=== PATIENT | female | born 1965 | race Caucasian/White ===

== ENCOUNTER → 2017-08-15 | Outpatient (CLI) | payer MEDICAID, OTHER, SELFPAY ==
[~2017-08-15] MED LIST: ALBU17IN INH; ANOR1AER IN; COUM2.5T17 PO; IBUP-1022 PO; LORA10TA2 PO; PERC5TAB12 PO; VITA1CAP40 PO
--- NOTE | 2017-08-15 11:02 | REP ---
PA and lateral chest: Comparison is 03/03/2013. The lung lombardi are clear. The cardiac size is normal The ankit, mediastinum, and bony thorax are unremarkable except for thoracic scoliosis convex right, unchanged. Impression: Negative PA and lateral chest. Except for thoracic scoliosis convex right, unchanged. Signed by Ricky Hatch MD 08/15/2017 10:54 A
--- NOTE | 2017-08-15 11:40 | REP ---
BILATERAL BASELINE SCREENING DIGITAL MAMMOGRAM: There are no comparisons. The breast parenchyma is moderately dense. There is no dominant mass, microcalcific cluster or architectural distortion that would indicate malignancy. Impression: Negative baseline bilateral screening digital mammogram. BI-RADS category 1. No evidence of malignancy. The patient should have a repeat mammogram in 1 year. This mammogram was interpreted with the aid of an FDA-approved computer-aided detection system. A. Negative x-ray reports should not delay biopsy if a dominant or clinically suspicious mass is present. B. Four to eight percent of cancers are not identified by x-ray. C. Adenosis and dense breasts may obscure an underlying neoplasm. The patient letter being requested is M1. Signed by Ricky Hatch MD 08/15/2017 11:56 A
[2017-08-15 13:06] LABS: BASO % 0.6 % (0.0-1.0); EOS # 0.1 10^3/uL (0.0-0.50); EOS % 2.5 % (0.0-3.0); IMMATURE GRANULOCYTE % 0.2 % (0-0); LYMPH # 1.8 10^3/uL (1.5-4.5); LYMPH % 33.9 % (24.0-44.0); MEAN CORPUSCULAR HEMOGLOBIN 34.3 pg (27.0-33.0); MEAN CORPUSCULAR HGB CONC 34.6 g/dl (32.0-36.5); MEAN CORPUSCULAR VOLUME 99.2 fl (80.0-96.0); MONO # 0.4 10^3/uL (0.0-0.8); MONO % 6.7 % (0.0-5.0); NEUTROPHILS # 2.9 10^3/uL (1.8-7.7); NEUTROPHILS % 56.1 % (36.0-66.0); WHITE BLOOD COUNT 5.2 10^3/uL (4.0-10.0)
[2017-08-15 15:57] LABS: ALBUMIN 3.5 GM/DL (3.2-5.2); ALBUMIN/GLOBULIN RATIO 1.03 (1.00-1.93); ALKALINE PHOSPHATASE 69 U/L (45-117); ALT/SGPT 17 U/L (12-78); ANION GAP 5 MEQ/L (8-16); AST/SGOT 10 U/L (15-37); BILIRUBIN,TOTAL 0.5 MG/DL (0.2-1.0); BLOOD UREA NITROGEN 14 MG/DL (7-18); CALCIUM LEVEL 8.9 MG/DL (8.5-10.1); CARBON DIOXIDE LEVEL 27 MEQ/L (21-32); CHLORIDE LEVEL 108 MEQ/L (98-107); CHOLESTEROL LEVEL 211 MG/DL (<200); CREATININE FOR GFR 0.83 MG/DL (0.55-1.02); GLOMERULAR FILTRATION RATE > 60.0 (>51); GLUCOSE, FASTING 95 MG/DL (70-105); POTASSIUM SERUM 4.3 MEQ/L (3.5-5.1); SODIUM LEVEL 140 MEQ/L (136-145); TOTAL PROTEIN 6.9 GM/DL (6.4-8.2); TRIGLYCERIDES LEVEL 155 MG/DL (<150)
== END ==
LOC: M RAD 10:11
PROVIDERS: ATTEND Physician Assistant Medical
DX: Z12.31 Encounter for screening mammogram for malignant neoplasm of breast (principal)
CPT/HCPCS: 36415; 71020; 80053; 80061; 82306; 85027; G0202

== ENCOUNTER → 2017-08-24 | Outpatient (CLI) | payer MEDICAID, OTHER ==
[2017-08-24 11:07] LABS: MEAN CORPUSCULAR HEMOGLOBIN 34.6 pg (27.0-33.0); MEAN CORPUSCULAR HGB CONC 35.1 g/dl (32.0-36.5); MEAN CORPUSCULAR VOLUME 98.5 fl (80.0-96.0); RED CELL DISTRIBUTION WIDTH 13.5 % (11.5-14.5); WHITE BLOOD COUNT 5.7 10^3/uL (4.0-10.0)
[2017-08-24 11:18] LABS: INR 0.85
[2017-08-24 11:32] LABS: ALBUMIN 3.8 GM/DL (3.2-5.2); ALBUMIN/GLOBULIN RATIO 1.03 (1.00-1.93); ALKALINE PHOSPHATASE 76 U/L (45-117); ALT/SGPT 19 U/L (12-78); ANION GAP 5 MEQ/L (8-16); AST/SGOT 15 U/L (15-37); BILIRUBIN,TOTAL 0.5 MG/DL (0.2-1.0); BLOOD UREA NITROGEN 17 MG/DL (7-18); CALCIUM LEVEL 9.1 MG/DL (8.5-10.1); CARBON DIOXIDE LEVEL 26 MEQ/L (21-32); CHLORIDE LEVEL 107 MEQ/L (98-107); CREATININE FOR GFR 0.97 MG/DL (0.55-1.02); GLOMERULAR FILTRATION RATE > 60.0 (>51); GLUCOSE, FASTING 94 MG/DL (70-105); POTASSIUM SERUM 4.5 MEQ/L (3.5-5.1); SODIUM LEVEL 138 MEQ/L (136-145); TOTAL PROTEIN 7.5 GM/DL (6.4-8.2)
--- NOTE | 2017-08-24 11:44 | ECGEPIP ---
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
== END ==
LOC: M ADMPAT 09:22
PROVIDERS: ATTEND Orthopaedic Surgery
DX: Z01.818 Encounter for other preprocedural examination (principal); M17.11 Unilateral primary osteoarthritis, right knee

== ENCOUNTER 2017-09-05 10:29 | Inpatient (IN) | payer MEDICAID, OTHER ==
[2017-08-24 09:56] VITALS: BP 128/74
--- NOTE | 2017-08-31 15:25 | HPE ---
DATE OF ADMISSION: 09/05/2017 HISTORY OF PRESENT ILLNESS: Mandy Bell is a pleasant, white female with continuing symptomatic right knee osteoarthritis. She has consented for a right total knee arthroplasty per Dr. Octaviano Willingham. Medical optimization was performed on 08/13/2017 with CHICHI Johnson. S-rays are consistent with advanced osteoarthritis. ALLERGIES: PENICILLIN. MEDICATIONS: List includes: - Coumadin 5 mg which she will take the night before surgery - tumeric - Claritin 10 mg one by mouth every day as needed for allergy symptoms - Anoro Ellipta 62.5/25 mcg - vitamin D 50,000 units one tablet by mouth once weekly with dinner - ProAir HFA 108 (90) two puffs four times a day as needed - ibuprofen 600 mg one tablet by mouth three times a day - Claritin RediTabs 10 mg - warfarin sodium take one by mouth every evening as directed MEDICAL PROBLEM LIST: 1. Right knee varus [id number] osteoarthritis. 1. Seasonal allergies. PAST SURGICAL HISTORY: None. FAMILY HISTORY: Cancer, diabetes. SOCIAL HISTORY: Current smoker everyday, occasional alcohol, two drinks maybe once a week. No illicit drugs. REVIEW OF SYSTEMS: Denies chest pain, shortness breath, dyspnea on exertion, fever, chills, malaise, upper respiratory or urinary tract symptoms. PHYSICAL EXAMINATION: Blood pressure 118/76, pulse 62, respiration 20, height 60, weight 164, temperature 96.8. This is a pleasant, overweight, white female in no acute distress, alert and oriented times three. Mood and affect are appropriate. Normocephalic. NECK: Supple. Negative jugular venous distention (JVD) or bruits. LUNGS: Clear to auscultation. CHEST: Regular rate and rhythm. ABDOMEN: Soft, nontender, sounds times four. Lower extremity skin temperature, color, sensory and motor within normal limits. She has positive tenderness about her right knee medial joint line with crepitance through flexion and extension. LABORATORY DATA: Reviewed from 08/24/2017 which showed blood urine 2+. Urine auto bacteria 1+. PT time 11.6. Anion gap 5. Urine culture specimen appeared contaminated. Nasal sinus culture normal elvira present. Chest x-ray negative except for thoracic scoliosis convex right by [facility], read by Dr. Ricky Hatch on 08/15/2017. EKG sinus bradycardia read by Dr. Mildred Mendoza. IMPRESSION: 1. Symptomatic right knee osteoarthritis. 2. Patient consented for a right total knee arthroplasty per Dr. Octaviano Willingham. 3. Medical optimization on 08/13/2017 per CHICHI Johnson. We are still awaiting her optimization note. 4. 600 mg IV clindamycin in operating room (OR) per penicillin allergy. 5. Sequential compression device (SCD) and thromboembolic-deterrent stockings (TEDS) in OR. MTDD
[~2017-09-05] VITALS: Ht 162.6 cm; Wt 77.6 kg
[~2017-09-05 10:29] MED LIST changes: -COUM2.5T17 PO; -PERC5TAB12 PO
[2017-09-05] MEDS ORDERED: LR 1,000 ML IV ONE (11:00)
[2017-09-05] MEDS ORDERED: ACETAMINOPHEN 500 MG TAB PO ONE (11:00)
[2017-09-05] MEDS ORDERED: MIDAZOLAM INJ 2 MG/2 ML VIAL (J2250) As Ordered ONE ×2 (12:00→12:23)
[2017-09-05] MEDS ORDERED: fentaNYL 100 MCG/2 ML INJECTION (J3010) As Ordered ONE ×2 (12:00→12:24)
[2017-09-05] MEDS ORDERED: EPINEPHrine INJ 1 MG/ML 1ML AMP As Ordered ONE (12:30)
[2017-09-05] MEDS ORDERED: TRANEXAMIC ACID 100 MG/ML 10ML VIAL As Ordered ONE (12:30)
[2017-09-05] MEDS ORDERED: BUPIVACAINE LIPOSOME/PF 1.3% 20 ML VIAL (13.3MG/ML)(EXPAREL) As Ordered ONE (12:31)
[2017-09-05] MEDS ORDERED: CLINDAMYCIN INJ 900MG/6ML VIAL As Ordered ONE (12:33)
[2017-09-05] MEDS ORDERED: MIDAZOLAM INJ 2 MG/2 ML VIAL (J2250) IV ONE (13:15)
[2017-09-05] MEDS ORDERED: fentaNYL 100 MCG/2 ML INJECTION (J3010) IV ONE (13:15)
[2017-09-05] MEDS ORDERED: ePHEDrine SULFATE 25 MG/5 ML(5MG/ML) SYRINGE As Ordered ONE ×2 (14:12→15:06)
[2017-09-05] MEDS ORDERED: PROPOFOL 200 MG/20 ML VIAL As Ordered ONE (14:12)
[2017-09-05] MEDS ORDERED: ONDANSETRON 4MG/2ML VIAL (J2405) As Ordered ONE (14:12)
[2017-09-05] MEDS ORDERED: LIDOCAINE 2% INJ 100 MG/5 ML SDV (FOR ANES.) As Ordered ONE (14:12)
[2017-09-05] MEDS ORDERED: SUCCINYLCHOLINE 100 MG/5 ML SYRINGE (J0330) As Ordered ONE (14:12)
[2017-09-05] MEDS ORDERED: dexameTHASONE 4 MG/ML 1ML VIAL (J1100) As Ordered ONE (14:12)
[2017-09-05] MEDS ORDERED: HYDROmorphone HCL 2 MG/ML 1ML VIAL (J1170) As Ordered ONE (14:27)
[2017-09-05] MEDS ORDERED: MORPHINE 1MG/ML IN 0.9% NACL 100ML IV BAG As Ordered ONE (15:20)
[2017-09-05] MEDS ORDERED: EPIDURAL/PCA KEYS XX PRN (16:15)
[2017-09-05] MEDS ORDERED: MEPERIDINE INJ 25 MG/ML VIAL (J2175) IV PRN (16:15)
[2017-09-05] MEDS ORDERED: LR 1,000 ML IV SCH (16:15)
[2017-09-05] MEDS ORDERED: diphenhydrAMINE INJ 50MG/ML VIAL (J1200) IV PRN (16:15)
[2017-09-05] MEDS ORDERED: ACETAMINOPHEN TAB 650MG DOSE (2X325MG) PO PRN (16:15)
[2017-09-05] MEDS ORDERED: fentaNYL 100 MCG/2 ML INJECTION (J3010) IV PRN (16:15)
[2017-09-05] MEDS ORDERED: FLEET ENEMA PR PRN (16:15)
[2017-09-05] MEDS ORDERED: ONDANSETRON 4MG/2ML VIAL (J2405) IV PRN ×2 (16:15)
[2017-09-05] MEDS ORDERED: METOCLOPRAMIDE INJ 10MG/2ML VIAL (J2765) IV PRN (16:15)
[2017-09-05] MEDS ORDERED: NALBUPHINE HCL 10 MG/ML AMP (J2300) IV PRN (16:15)
[2017-09-05] MEDS ORDERED: NALOXONE INJ 0.4 MG/1 ML VIAL (J2310) IV PRN (16:15)
[2017-09-05] MEDS: LR 1,000 ML IV SCH (16:15)
[2017-09-05] MEDS ORDERED: MORPHINE 1MG/ML IN 0.9% NACL 100ML IV BAG IV PRN (16:15)
--- NOTE | 2017-09-05 16:51 | RO ---
DATE OF PROCEDURE: 09/05/2017 PREOPERATIVE DIAGNOSIS: Right knee degenerative arthritis. POSTOPERATIVE DIAGNOSIS: Right knee degenerative arthritis. PROCEDURE: Right total knee arthroplasty using a size 2-1/2 femoral component cruciate retaining with a size 2-1/2 tibial tray with a 10.5 mm rotating polyethylene insert and a 32 mm polyethylene button. All components were cemented. Prosthesis made by [employer]. It was a PFC knee. SURGEON: Linette Scruggs MD FORMATION TESTING OPERATOR: Ms. Mar Coulter ANESTHESIA: General endotracheal anesthetic with right femoral nerve block. COMPLICATIONS: Were none. SPECIMEN: Joint surface. ESTIMATED BLOOD LOSS: Less than 20 mL. DESCRIPTION OF PROCEDURE: Antibiotics were given intravenously preoperatively and a successful right femoral nerve block and then general endotracheal tube anesthetic was established. Tourniquet was placed right upper thigh and not inflated. Right lower extremity was prepped and draped in the usual sterile fashion, and then after appropriate time-out, the leg was elevated and then the tourniquet inflated. A longitudinal incision was then made for a medial parapatellar approach to the knee. Bovie cautery used to coagulate the crossing vessels. Medial parapatellar arthrotomy was then performed. Subperiosteal dissection around the proximal medial and lateral tibia plateaus was then performed. The patella was everted. The knee flexed. A drill was placed down the center of the femoral canal, followed by the distal femoral cutting jigs set at 5 degree valgus cut at 10 mm resection level for a right knee. The block was pinned in position. Distal femoral cut performed. AP sizing jig measured for right on the money for a 2.5 size femoral component. The 3 degree external rotation block for a right knee was pinned, followed by the 4-in-1 block and the anterior, posterior and chamfer cuts performed taking great care to protect the surrounding soft tissues. We then exposed the proximal tibia, used the extramedullary alignment jig to estimate being parallel to the mechanical axis of the tibia. Once we had adjusted appropriately, we referenced off the medial tibial condyle at 4 mm resection leve block It was pinned in positioned. Secondary luana was used to ensure that we appeared to be parallel to the mechanical axis. We did have to adjust it by pulling a pin en route and using the extramedullary luana to adjust our alignment and re-pinning the tibia jig. The proximal tibial osteotomy was then performed. Then, the lamina morning news producer was placed medially and we performed a completion lateral meniscectomy with debridement of the posterior lateral osteophytes. Then, we placed the lamina morning news producer laterally and performed a completion medial meniscectomy and debridement of the posterior medial osteophytes. The spacer block, 10 mm, fit nicely with good symmetry in both flexion and in extension. Good stability varus, valgus stress testing noted. We then exposed the proximal tibia, sized for a 2.5 tray, which pinned, reamed and broached in position, followed by the trial polyethylene, then trial femoral component, which fit nicely. Brought the knee into the extension. Everted the patella. Performed a patellar osteotomy. Sized for a 32 mm button. Lug holes drilled. The trial prosthesis was applied and the patellofemoral tracking was anatomic. We then drilled the lug holes for the femur. Removed all trial components. Exparel was placed into the posterior and in the medial and lateral aspects of the femur, as well as the medial and lateral aspects of the periosteum of the tibia, and then Ms. Mar Coulter mixed the cement on the back table as I prepared the bony surfaces for cementing with a copious amount of pulsatile lavage irrigant solution. She was also critical to the success of the procedure by helping manipulate the knee, apply appropriate soft tissue retraction, help to close the wound, amongst many other tasks. Once all the bony surfaces were thoroughly dried, we cemented the tibial tray, removed excess cement, placed the polyethylene. Cemented the femoral component and removed excess cement. Brought the knee into extension. Cemented the patellar button and clamped it and removed excess cement and held the position until the cement hardened. We copiously pulsatile lavage irrigated out the knee joint as we were awaiting for the cement to harden, then applied tranexamic acid. Barron arthrotomy was closed with two #1 interrupted PDS sutures. The medial parapatellar area was closed with a #1 PDS suture, then a running double armed Stratafix used to close the capsule, then the tourniquet was released. We copiously irrigated the wound again, and then closed the deep subdermal tissues with interrupted #2-0 PDS suture. The skin was closed with vernell, covered by Adaptic, dry sterile bulky dressing. She was then awakened from general endotracheal tube anesthesia after having tolerated the procedure well, transferred to the recovery room in stable condition. There were no intraoperative complications.
[2017-09-05] MEDS ORDERED: WARFARIN SOD 5 MG TAB PO ONE (17:00)
[2017-09-05 18:00] VITALS: BP 127/58
[2017-09-05 18:30] VITALS: BP 125/60
[2017-09-05] MEDS ORDERED: ALBUTEROL SULFATE 2.5 MG/0.5 ML INH NEB SOLN NEB PRN (18:45)
[2017-09-05] MEDS ORDERED: CETIRIZINE (ZyrTEC) 10 MG TAB PO PRN (18:45)
[2017-09-05 19:30] VITALS: BP 110/57
--- NOTE | 2017-09-05 19:34 | IPN ---
DATE: 09/05/2017 PRIMARY CARE PROVIDER: Romelia Amezcua REASON FOR CONSULTATION: Medical management. REFERRING PHYSICIAN: Dr. Willingham. HISTORY OF PRESENT ILLNESS: The patient is a 52-year-old female with a past medical history significant for seasonal allergies presented to [facility] on 09/05/2017 for right knee replacement. Patient tolerated the procedure well. Denies any acute complaints during our encounter. Patient's primary care providers notes were reviewed. Patient was given inhaler 08/29/2017 for suspicion for chronic obstructive pulmonary disease, but patient never had a pulmonary function test before. PAST MEDICAL HISTORY: Seasonal allergies. PAST SURGICAL HISTORY: Right knee placement done 09/05/2017. SOCIAL HISTORY: Patient smoked one pack daily for the past 28 years. Patient drinks rum and coke approximately two times weekly. Denies recreational drug use. ALLERGIES: None. Patient did have significant family history of penicillin allergy. REVIEW OF SYSTEMS: GENERAL: No fever or chills. HEENT: No vision change, no auditory change. CARDIOVASCULAR: No chest pain, or palpitations. RESPIRATORY: No cough. No sputum production. GI: No nausea, no vomiting. No abdominal pain, no diarrhea. MUSCULOSKELETAL : Right knee osteoarthritis status post right total knee replacement 09/05/2017. NEURO: Denied any numbness or tingling. OBJECTIVE: Vital signs temperature 96.4, pulse is 54, respirations 18, blood pressure is 130/62, pulse ox is 94% with 3 liters nasal cannula. GENERAL: No fatigue. No sign of acute distress. Awake, alert, and oriented times three. HEENT: Normocephalic, atraumatic. Extraocular motor grossly intact. CARDIOVASCULAR: Distant heart sounds, positive S1, S2. Irregular rate. LUNGS: Mild crackles in the lung base. No wheezes. ABDOMEN: Soft, non-tender. Non-distended. Bowel sounds present. EXTREMITIES: Right knee is wrapped with a bandage. No lower extremity edema appreciated. LABORATORY DATA: 08/24/2017 showed WBC of 5.7, hemoglobin 14.3, hematocrit is 40.7, platelet count is 247. Sodium 138, potassium 4.5, chloride 107, carbon dioxide 26, BUN 17, creatinine 0.97, glomerular filtration rate (GFR) greater than 60. Fasting glucose is 94. ASSESSMENT AND PLAN: 1, Right knee total arthroplasty. Referred to the primary orthopedic team for postoperative care including diet, pain control, activity level and anticoagulation. 2. Seasonal allergy. Patient will have Zyrtec 10 mg every 30 as needed. 3. Question of tobacco abuse. Patient was told that primary care provider is suspecting she has chronic obstructive pulmonary disease, but she never had a pulmonary function test done. Patient was given Ellipta inhaler on 08/29/2017. At the time of examination patient does not have any significant wheezes, or cough or sputum production. Patient will have nebulizer as needed. 4. Deep vein thrombosis prophylaxis referred to primary surgical team.
[2017-09-05 20:30] VITALS: BP 124/68
[2017-09-05 21:30] VITALS: BP 118/52
[2017-09-05 21:53] VITALS: O2SAT 94
[2017-09-06 01:30] VITALS: BP 102/58
[2017-09-06] MEDS ORDERED: raNITIdine SYRUP 150 MG/10 ML UDC PO ONE (02:53)
[2017-09-06] MEDS: LR 1,000 ML IV SCH (04:45)
[2017-09-06 06:00] VITALS: BP 112/62
[2017-09-06 06:57] LABS: MEAN CORPUSCULAR HGB CONC 34.4 g/dl (32.0-36.5); MEAN CORPUSCULAR VOLUME 98.8 fl (80.0-96.0); PLATELET COUNT, AUTOMATED 180 10^3/uL (150-450); RED CELL DISTRIBUTION WIDTH 13.8 % (11.5-14.5); WHITE BLOOD COUNT 11.5 10^3/uL (4.0-10.0)
[2017-09-06] MEDS ORDERED: PERCOCET 5MG/325MG TAB PO PRN (07:00)
[2017-09-06 07:08] LABS: INR 1.09
[2017-09-06 07:15] LABS: ANION GAP 7 MEQ/L (8-16); BLOOD UREA NITROGEN 13 MG/DL (7-18); CALCIUM LEVEL 8.7 MG/DL (8.5-10.1); CARBON DIOXIDE LEVEL 27 MEQ/L (21-32); CHLORIDE LEVEL 104 MEQ/L (98-107); GLOMERULAR FILTRATION RATE > 60.0 (>51); GLUCOSE, FASTING 114 MG/DL (70-105); POTASSIUM SERUM 4.6 MEQ/L (3.5-5.1); SODIUM LEVEL 138 MEQ/L (136-145)
[2017-09-06] MEDS: MIRALAX *UNIT DOSE* 17GM PACKET PO SCH (08:38)
[2017-09-06] MEDS: MOM 30ML SUSPENSION UDC PO SCH (08:38)
[2017-09-06] MEDS: SENOKOT S TAB PO SCH ×2 (08:38→21:00)
[2017-09-06] MEDS: ONDANSETRON 4 MG TAB (S0181) PO PRN ×2 (08:38→23:32)
[2017-09-06] MEDS ORDERED: ONDANSETRON 4MG/2ML VIAL (J2405) IV PRN (09:00)
[2017-09-06] MEDS: PERCOCET 5MG/325MG TAB PO PRN ×3 (11:57→21:20)
--- NOTE | 2017-09-06 14:39 | REP ---
Right knee two views postoperative study: There is a total knee arthroplasty with the components tightly applied and in satisfactory positions alignment. Skin vernell are incidentally noted. Signed by Ricky Hatch MD 09/06/2017 02:30 P
[2017-09-06] MEDS ORDERED: ROPIvacaine 0.5% 30 ML INJECTION (J2795) ONE (14:56)
[2017-09-06] MEDS ORDERED: EPINEPHrine INJ 1 MG/ML 1ML AMP ONE (14:56)
--- NOTE | 2017-09-06 15:22 | IPNPDOC ---
Text Note Date of Service The patient was seen on 09/06/17. NOTE Subjective: Patient is a 52 year old female with a PMHx of seasonal allergies who presented to [facility] for an elective right knee arthroplasty. Patient was seen and examined at the bedside. Currently complaining of right knee pain. Objective: Vitals (See below) General: Lying in bed, no acute distress, comfortable, AAOx3 HEENT: NC, AT CVS: RRR, +S1S2 Lungs: Fair air entry b/l, -w/r/r Abdomen: Soft, ND, NT Extremities: - Edema, - Calf tenderness, Right knee in dressin g Assessment and plan: Right knee pain - likely 2/2 osteoarthritis - s/p total right knee arthroplasty (Day #1) - Failed medical management - Pain control and anticoagulation for DVT prophylaxis as per primary team Leukocytosis - likely 2/2 reactive process - s/p surgery - Will continue to monitor Normocytic anemia - will continue to monitor Seasonal allergies - c/w Cetirizine Tobacco abuse - c/w DuoNeb PRN DVT prophylaxis - As per primary primary team VSCandis, I+O VSCandis, I+O Laboratory Tests 09/06/17 06:43 Red Blood Count 3.44 L, Mean Corpuscular Volume 98.8 H, Mean Corpuscular Hemoglobin 34.0 H, Mean Corpuscular Hemoglobin Concent 34.4, Red Cell Distribution Width 13.8, Calcium Level 8.7 Vital Signs Date Time Temp Pulse Resp B/P (MAP) Pulse Ox O2 Delivery O2 Flow Rate FiO2 09/06/17 12:27 16 09/06/17 08:43 Room Air 09/06/17 06:00 98.4 72 112/62 (79) 96 3.0 I&O- Last 24 Hours up to 6 AM 09/07/17 06:00 Output Total 550 ml Balance -550 ml SACHA VEGA MD Sep 06, 2017 15:22
[2017-09-06] MEDS ORDERED: WARFARIN SOD 5 MG TAB PO ONE (17:00)
[2017-09-06 21:30] VITALS: O2SAT 93
[2017-09-06 22:00] VITALS: BP 133/60
[2017-09-06] MEDS ORDERED: FAMOTIDINE 20 MG TAB PO ONE (23:45)
[2017-09-07] MEDS: PERCOCET 5MG/325MG TAB PO PRN ×3 (02:39→15:10)
[2017-09-07 06:00] VITALS: BP 109/51
[2017-09-07 06:55] LABS: MEAN CORPUSCULAR HEMOGLOBIN 33.8 pg (27.0-33.0); MEAN CORPUSCULAR HGB CONC 33.7 g/dl (32.0-36.5); MEAN CORPUSCULAR VOLUME 100.3 fl (80.0-96.0); PLATELET COUNT, AUTOMATED 170 10^3/uL (150-450); WHITE BLOOD COUNT 9.8 10^3/uL (4.0-10.0)
[2017-09-07] MEDS ORDERED: MORPHINE 15 MG SA TAB PO ONE (07:00)
[2017-09-07 07:05] LABS: INR 1.34
[2017-09-07 07:17] LABS: CALCIUM LEVEL 8.7 MG/DL (8.5-10.1); CREATININE FOR GFR 1.06 MG/DL (0.55-1.02); GLOMERULAR FILTRATION RATE 57.7 (>51)
--- NOTE | 2017-09-07 08:28 | ECGEPIP ---
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
[2017-09-07 08:31] LABS: POTASSIUM SERUM 5.2 MEQ/L (3.5-5.1)
[2017-09-07] MEDS: SENOKOT S TAB PO SCH ×2 (09:00→21:00)
[2017-09-07] MEDS ORDERED: MORPHINE 15 MG SA TAB PO SCH (09:00)
[2017-09-07] MEDS ORDERED: PHYTONADIONE 1.25 MG 1/4 TAB PO ONE (09:00)
[2017-09-07] MEDS: MOM 30ML SUSPENSION UDC PO SCH (09:19)
[2017-09-07] MEDS: MIRALAX *UNIT DOSE* 17GM PACKET PO SCH (09:19)
--- NOTE | 2017-09-07 16:25 | IPNPDOC ---
Text Note Date of Service The patient was seen on 09/07/17. NOTE Subjective: Patient is a 52 year old female with a PMHx of seasonal allergies who presented to [facility] for an elective right knee arthroplasty. Patient was seen and examined at the bedside. Has had some progress with physical therapy, but still having a lot of pain. Orthopedic surgery has adjusted her pain control regimen. Objective: Vitals (See below) General: Lying in bed, no acute distress, comfortable, AAOx3 HEENT: NC, AT CVS: RRR, +S1S2 Lungs: Fair air entry b/l, -w/r/r Abdomen: Soft, ND, NT Extremities: - Edema, - Calf tenderness, Right knee in dressing Assessment and plan: Right knee pain - likely 2/2 osteoarthritis - s/p total right knee arthroplasty (Day #2) - Failed medical management - Pain control and anticoagulation for DVT prophylaxis as per primary team s/p Leukocytosis - likely 2/2 reactive process - s/p surgery - Will continue to monitor Normocytic anemia - will continue to monitor Seasonal allergies - c/w Cetirizine Tobacco abuse - c/w DuoNeb PRN DVT prophylaxis - As per primary primary team VS,Yfnbone, I+O VS, Yfnbone, I+O Laboratory Tests 09/07/17 06:35 Red Blood Count 3.34 L, Mean Corpuscular Volume 100.3 H, Mean Corpuscular Hemoglobin 33.8 H, Mean Corpuscular Hemoglobin Concent 33.7, Red Cell Distribution Width 14.0, Calcium Level 8.7 Vital Signs Date Time Temp Pulse Resp B/P (MAP) Pulse Ox O2 Delivery O2 Flow Rate FiO2 09/07/17 16:13 16 09/07/17 08:00 Room Air 09/07/17 07:02 2.0 09/07/17 06:00 99.7 78 109/51 (70) 96 SACHA VEGA MD Sep 07, 2017 16:25
[2017-09-07] MEDS ORDERED: WARFARIN SOD 7.5 MG TAB PO ONE (17:00)
[2017-09-07 18:55] VITALS: O2SAT 95
[2017-09-07] MEDS: MORPHINE 15 MG SA TAB PO SCH (21:24)
[2017-09-07 22:00] VITALS: BP 106/57
[2017-09-08] MEDS: PERCOCET 5MG/325MG TAB PO PRN ×2 (03:04→13:57)
[2017-09-08 06:00] VITALS: BP 105/58
[2017-09-08 07:26] LABS: MEAN CORPUSCULAR HEMOGLOBIN 34.5 pg (27.0-33.0); MEAN CORPUSCULAR HGB CONC 34.6 g/dl (32.0-36.5); MEAN CORPUSCULAR VOLUME 99.7 fl (80.0-96.0); PLATELET COUNT, AUTOMATED 156 10^3/uL (150-450); RED CELL DISTRIBUTION WIDTH 13.9 % (11.5-14.5); WHITE BLOOD COUNT 7.6 10^3/uL (4.0-10.0)
[2017-09-08 07:42] LABS: INR 1.47
[2017-09-08 07:57] LABS: ANION GAP 5 MEQ/L (8-16); BLOOD UREA NITROGEN 15 MG/DL (7-18); CALCIUM LEVEL 8.7 MG/DL (8.5-10.1); CARBON DIOXIDE LEVEL 31 MEQ/L (21-32); CHLORIDE LEVEL 100 MEQ/L (98-107); CREATININE FOR GFR 0.94 MG/DL (0.55-1.02); GLOMERULAR FILTRATION RATE > 60.0 (>51); GLUCOSE, FASTING 98 MG/DL (70-105); POTASSIUM SERUM 4.2 MEQ/L (3.5-5.1); SODIUM LEVEL 136 MEQ/L (136-145)
[2017-09-08] MEDS: SENOKOT S TAB PO SCH (08:46)
[2017-09-08] MEDS: MOM 30ML SUSPENSION UDC PO SCH (08:46)
[2017-09-08] MEDS: MIRALAX *UNIT DOSE* 17GM PACKET PO SCH (08:46)
[2017-09-08] MEDS: MORPHINE 15 MG SA TAB PO SCH (08:47)
[2017-09-08] MEDS ORDERED: COUM2.5T17 PO (09:12)
[2017-09-08] MEDS ORDERED: PERC5TAB12 PO (09:12)
--- NOTE | 2017-09-08 13:13 | IPNPDOC ---
Text Note Date of Service The patient was seen on 09/08/17. NOTE Subjective: Patient is a 52 year old female with a PMHx of seasonal allergies who presented to [facility] for an elective right knee arthroplasty. Patient was seen and examined at the bedside. Continues to work with physical therapy, has shown progression. Objective: Vitals (See below) General: Lying in bed, no acute distress, comfortable, AAOx3 HEENT: NC, AT CVS: RRR, +S1S2 Lungs: Fair air entry b/l, -w/r/r Abdomen: Soft, ND, NT Extremities: - Edema, - Calf tenderness, Right knee in dressing Assessment and plan: Right knee pain - likely 2/2 osteoarthritis - s/p total right knee arthroplasty (Day #3) - Failed medical management - Pain control and anticoagulation for DVT prophylaxis as per primary team s/p Leukocytosis - likely 2/2 reactive process - s/p surgery Normocytic anemia - Hg stable Seasonal allergies - c/w Cetirizine Tobacco abuse with possible chronic obstructive changes - c/w DuoNeb PRN DVT prophylaxis - As per primary primary team VS,Candis, I+O VS, Candis, I+O Laboratory Tests 09/08/17 07:05 Red Blood Count 3.33 L, Mean Corpuscular Volume 99.7 H, Mean Corpuscular Hemoglobin 34.5 H, Mean Corpuscular Hemoglobin Concent 34.6, Red Cell Distribution Width 13.9, Calcium Level 8.7 Vital Signs Date Time Temp Pulse Resp B/P (MAP) Pulse Ox O2 Delivery O2 Flow Rate FiO2 09/08/17 08:47 16 09/08/17 08:00 Room Air 09/08/17 06:00 97.9 64 105/58 (74) 94 09/07/17 07:02 2.0 SACHA VEGA MD Sep 08, 2017 13:13
--- NOTE | 2017-09-11 08:20 | DSES ---
DATE OF ADMISSION: 09/05/2017 DATE OF DISCHARGE: 09/08/2017 HISTORY OF PRESENT ILLNESS: This is a pleasant female who had continuing symptomatic right knee osteoarthritis. She consented for right total knee arthroplasty per Dr. Octaviano Willingham and was medically optimized by Romelia Amezcua. X-rays were consistent with advanced osteoarthritis. Operation performed was a right total knee arthroplasty. HOSPITAL COURSE: The patient uneventfully underwent right total knee arthroplasty under general endotracheal anesthetic with right femoral nerve block. She was returned to recovery comfortable, and our hospital team felt she could be discharged on 09/08/2017 with the following instructions: Weightbearing as tolerated right lower extremity with walker. Thromboembolism deterrent (TESFAYE) stockings and Coumadin times 30 days. Percocet as needed, pain. Diet is regular. Optifoam dressing change in 4 days' time. Followup in office for wound check. Staple removal in 12-14 days. The patient is encouraged to contact our office sooner with increased redness, drainage, bleeding, numbness, and tingling down her lower extremity, fever greater than 101, or further concerns. JULIETTE
== END 2017-09-08 14:14 | disposition home health service (06) | DRG 302 ==
LOC: M OR 10:29 → M MS5PR 18:00
PROVIDERS: ADMIT Orthopaedic Surgery; ATTEND Orthopaedic Surgery
PROC: 0SRC0J9 Replacement of Right Knee Joint with Synthetic Substitute, Cemented, Open Approach (ICD-10-PCS; principal; 2017-09-05 12:30)
DX: M17.11 Unilateral primary osteoarthritis, right knee (principal); D64.9 Anemia, unspecified; Z79.01 Long term (current) use of anticoagulants; Z79.899 Other long term (current) drug therapy; F17.200 Nicotine dependence, unspecified, uncomplicated; D72.829 Elevated white blood cell count, unspecified

== ENCOUNTER → 2017-09-21 | Outpatient (REF) | payer OTHER ==
[~2017-09-21] MED LIST changes: +COUM2.5T17 PO; +PERC5TAB12 PO
[2017-09-21 11:00] LABS: INR 1.67
== END ==
LOC: M SHH 10:43
PROVIDERS: ATTEND Nurse Practitioner Family
DX: Z51.81 Encounter for therapeutic drug level monitoring (principal); Z79.01 Long term (current) use of anticoagulants

== ENCOUNTER → 2017-09-25 | Outpatient (REF) | payer OTHER ==
[2017-09-25 14:11] LABS: INR 2.96
== END ==
LOC: M LAB REF 11:37 → M SHH 11:37
PROVIDERS: ATTEND Nurse Practitioner Family
DX: Z79.01 Long term (current) use of anticoagulants (principal)

== ENCOUNTER → 2017-09-28 | Outpatient (REF) | payer OTHER ==
[2017-09-28 14:33] LABS: INR 3.21
== END ==
LOC: M SHH 14:09
PROVIDERS: ATTEND Nurse Practitioner Family
DX: Z51.81 Encounter for therapeutic drug level monitoring (principal); Z79.01 Long term (current) use of anticoagulants

== ENCOUNTER → 2017-10-02 | Outpatient (REF) | payer OTHER ==
[2017-10-02 14:22] LABS: INR 1.34
== END ==
LOC: M LAB REF 13:53
PROVIDERS: ATTEND Nurse Practitioner Family
DX: Z79.01 Long term (current) use of anticoagulants (principal)

== ENCOUNTER → 2018-02-27 | Outpatient (REF) | payer OTHER ==
[2018-02-27 16:23] LABS: ALKALINE PHOSPHATASE 92 U/L (45-117); ALT/SGPT 17 U/L (12-78); ANION GAP 5 MEQ/L (8-16); AST/SGOT 14 U/L (7-37); BILIRUBIN,TOTAL 0.5 MG/DL (0.2-1.0); BLOOD UREA NITROGEN 17 MG/DL (7-18); CALCIUM LEVEL 9.5 MG/DL (8.5-10.1); CARBON DIOXIDE LEVEL 29 MEQ/L (21-32); CHLORIDE LEVEL 104 MEQ/L (98-107); CHOLESTEROL LEVEL 241 MG/DL (<200); CHOLESTEROL RISK RATIO 4.016 (<5); CREATININE FOR GFR 0.91 MG/DL (0.55-1.30); FREE T4 1.36 NG/DL (0.76-1.46); GLOMERULAR FILTRATION RATE > 60.0 (>51); GLUCOSE, FASTING 81 MG/DL (70-100); HDL CHOLESTEROL 60 MG/DL (>40); LDL CHOLESTEROL 158.4 MG/DL (<100); MAGNESIUM LEVEL 2.2 MG/DL (1.8-2.4); NON-HDL-C 181 MG/DL; POTASSIUM SERUM 4.5 MEQ/L (3.5-5.1); SODIUM LEVEL 138 MEQ/L (136-145); THYROID STIMULATING HORMONE 0.994 uIU/ML (0.358-3.740); TRIGLYCERIDES LEVEL 113 MG/DL (<150)
[2018-02-27 16:41] LABS: BASO % 0.4 % (0.0-1.0); EOS # 0.1 10^3/uL (0.0-0.50); EOS % 1.9 % (0.0-3.0); HEMATOCRIT 43.8 % (36.0-47.0); HEMOGLOBIN 15.3 g/dl (12.0-15.5); IMMATURE GRANULOCYTE % 0.2 % (0-3.0); MEAN CORPUSCULAR HEMOGLOBIN 33.5 pg (27.0-33.0); MEAN CORPUSCULAR HGB CONC 34.9 g/dl (32.0-36.5); MEAN CORPUSCULAR VOLUME 95.8 fl (80.0-96.0); MONO # 0.4 10^3/uL (0.0-0.8); MONO % 7.2 % (0.0-5.0); NEUTROPHILS # 3.1 10^3/uL (1.8-7.7); NEUTROPHILS % 54.3 % (36.0-66.0); PLATELET COUNT, AUTOMATED 224 10^3/uL (150-450); RED BLOOD COUNT 4.57 10^6/uL (4.00-5.40); RED CELL DISTRIBUTION WIDTH 13.9 % (11.5-14.5); WHITE BLOOD COUNT 5.7 10^3/uL (4.0-10.0)
[2018-02-27 17:45] LABS: APPEARANCE, URINE CLEAR (CLEAR); BACTERIA, URINE AUTO NEGATIVE (NEGATIVE); BILIRUBIN, URINE AUTO NEGATIVE (NEGATIVE); BLOOD, URINE BLOOD 2+ (NEGATIVE); COLOR, URINE YELLOW (YELLOW); GLUCOSE, URINE (UA) AUTO NEGATIVE (NEGATIVE); KETONE, URINE AUTO NEGATIVE (NEGATIVE); LEUKOCYTE ESTERASE, URINE AUTO NEGATIVE (NEGATIVE); MUCUS, URINE SMALL (NEGATIVE); NITRITE, URINE AUTO NEGATIVE (NEGATIVE); PROTEIN, URINE AUTO NEGATIVE (NEGATIVE); RBC, URINE AUTO 4 /HPF (0-3); SPECIFIC GRAVITY URINE AUTO 1.009 (1.002-1.035); SQUAMOUS EPITHELIAL CELL UR AU 2 /HPF (0-6); UROBILINOGEN, URINE AUTO 0.2 mg/dL (0.0-2.0); WBC, URINE AUTO 1 /HPF (0-3)
== END ==
LOC: M LAB REF 15:53
DX: R00.1 Bradycardia, unspecified (principal); Z13.220 Encounter for screening for lipoid disorders; K59.00 Constipation, unspecified; R82.71 Bacteriuria

== ENCOUNTER → 2018-03-20 | Outpatient (CLI) | payer OTHER | LOC: M EKG 11:40 | DX: R00.1 Bradycardia, unspecified (principal) | CPT/HCPCS: 93005 ==

== ENCOUNTER → 2018-04-03 | Outpatient (REF) | payer OTHER | LOC: M LAB REF 19:27 | DX: Z12.4 Encounter for screening for malignant neoplasm of cervix (principal) ==

== ENCOUNTER → 2018-04-03 | Outpatient (REF) | payer OTHER ==
[2018-04-03 17:42] LABS: APPEARANCE, URINE HAZY (CLEAR); BACTERIA, URINE AUTO NEGATIVE (NEGATIVE); BILIRUBIN, URINE AUTO NEGATIVE (NEGATIVE); BLOOD, URINE BLOOD 2+ (NEGATIVE); COLOR, URINE YELLOW (YELLOW); GLUCOSE, URINE (UA) AUTO NEGATIVE (NEGATIVE); KETONE, URINE AUTO NEGATIVE (NEGATIVE); LEUKOCYTE ESTERASE, URINE AUTO TRACE (NEGATIVE); NITRITE, URINE AUTO NEGATIVE (NEGATIVE); PROTEIN, URINE AUTO NEGATIVE (NEGATIVE); RBC, URINE AUTO 8 /HPF (0-3); SPECIFIC GRAVITY URINE AUTO 1.011 (1.002-1.035); SQUAMOUS EPITHELIAL CELL UR AU 5 /HPF (0-6); UROBILINOGEN, URINE AUTO 0.2 mg/dL (0.0-2.0); WBC, URINE AUTO 4 /HPF (0-3)
== END ==
LOC: M LAB REF 16:45
DX: R31.29 Other microscopic hematuria (principal)

== ENCOUNTER → 2018-04-17 | Outpatient (REF) | payer OTHER | LOC: M LAB REF 16:36 | DX: R31.29 Other microscopic hematuria (principal) ==

== ENCOUNTER → 2018-04-30 | Outpatient (CLI) | payer OTHER | LOC: M PLARAD 13:40 | DX: M51.26 Other intervertebral disc displacement, lumbar region (principal); M48.061 Spinal stenosis, lumbar region without neurogenic claudication | CPT/HCPCS: 72148 ==

== ENCOUNTER → 2018-05-01 | Outpatient (CLI) | payer OTHER ==
[~2018-05-01] MED LIST changes: -ALBU17IN INH; -ANOR1AER IN; +CONRAY-43 43% 50ML VIAL (Q9960) As Ordered; -COUM2.5T17 PO; -IBUP-1022 PO; +LIDOCAINE 1% MDV 20ML VIAL As Ordered; -LORA10TA2 PO; -PERC5TAB12 PO; +TRIAMCINOLONE ACETONIDE SUSP 40 MG/ML VIAL (J3301) As Ordered; -VITA1CAP40 PO
== END ==
LOC: M RADPRO 08:25
DX: M16.11 Unilateral primary osteoarthritis, right hip (principal)
CPT/HCPCS: 20610

== ENCOUNTER → 2018-05-03 | Outpatient (CLI) | payer OTHER ==
[2018-05-03 13:49] LABS: APPEARANCE, URINE MANUAL HAZY (CLEAR); COLOR, URINE MANUAL YELLOW (YELLOW)
[2018-05-03 13:50] LABS: BILIRUBIN, URINE MANUAL NEGATIVE (NEGATIVE); BLOOD URINE MANUAL POSITIVE (NEGATIVE); GLUCOSE, URINE (UA) MANUAL NEGATIVE (NEGATIVE); KETONE, URINE MANUAL NEGATIVE (NEGATIVE); LEUKOCYTE ESTERASE, URINE MAN TRACE (NEGATIVE); MICROSCOPIC INDICATED? MAN YES (NO); NITRITE, URINE MANUAL NEGATIVE (NEGATIVE); PROTEIN, URINE MANUAL NEGATIVE (NEGATIVE); SPECIFIC GRAVITY,URINE MANUAL 1.015 (1.002-1.035); UROBILINOGEN, URINE MANUAL NORMAL (NORMAL)
[2018-05-03 14:06] LABS: AMORPHOUS SEDIMENT, URINE SMALL AMOUNT (NEGATIVE); SQUAMOUS EPITHELIAL CELL URINE SMALL AMOUNT /hpf (SMALL AMT); WBC, URINE 0-1 /hpf (0-3)
[2018-05-03 14:08] LABS: BACTERIA, URINE NONE SEEN; HYALINE CAST, URINE NONE SEEN /lpf (0-1)
[2018-05-03 14:09] LABS: MICROSCOPIC EXAM PERFORMED
[2018-05-03 14:35] LABS: ANION GAP 9 MEQ/L (8-16); BLOOD UREA NITROGEN 27 MG/DL (7-18); CALCIUM LEVEL 9.7 MG/DL (8.5-10.1); CARBON DIOXIDE LEVEL 26 MEQ/L (21-32); CHLORIDE LEVEL 104 MEQ/L (98-107); CREATININE FOR GFR 1.02 MG/DL (0.55-1.30); GLOMERULAR FILTRATION RATE > 60.0 (>51); GLUCOSE, FASTING 94 MG/DL (70-100); POTASSIUM SERUM 4.6 MEQ/L (3.5-5.1); SODIUM LEVEL 139 MEQ/L (136-145)
== END ==
LOC: M SMT 11:57
DX: R31.29 Other microscopic hematuria (principal)
CPT/HCPCS: 80048

== ENCOUNTER → 2018-05-08 | Outpatient (CLI) | payer OTHER ==
[~2018-05-08] MED LIST changes: -CONRAY-43 43% 50ML VIAL (Q9960) As Ordered; +ISOVUE-370 76% 100ML VIAL (Q9967) As Ordered; -LIDOCAINE 1% MDV 20ML VIAL As Ordered; -TRIAMCINOLONE ACETONIDE SUSP 40 MG/ML VIAL (J3301) As Ordered
== END ==
LOC: M RAD 09:05
DX: R31.29 Other microscopic hematuria (principal)
CPT/HCPCS: Q9967

== ENCOUNTER → 2018-05-31 | Outpatient (CLI) | payer OTHER | LOC: M RAD 07:09 | DX: R10.11 Right upper quadrant pain (principal) | CPT/HCPCS: 76705 ==

== ENCOUNTER → 2018-11-19 | Outpatient (CLI) | payer OTHER ==
[~2018-11-19] MED LIST changes: +ALBU17IN INH; +ANOR1AER IN; +COUM2.5T17 PO; +IBUP-1022 PO; -ISOVUE-370 76% 100ML VIAL (Q9967) As Ordered; +LORA10TA3 PO; +PERC5TAB12 PO; +VENTAER INH; +VITA50005 PO
[2018-11-19 12:53] LABS: HEMATOCRIT 41.5 % (36.0-47.0); HEMOGLOBIN 14.5 g/dl (12.0-15.5); MEAN CORPUSCULAR HEMOGLOBIN 33.6 pg (27.0-33.0); MEAN CORPUSCULAR HGB CONC 34.9 g/dl (32.0-36.5); MEAN CORPUSCULAR VOLUME 96.3 fl (80.0-96.0); PLATELET COUNT, AUTOMATED 240 10^3/uL (150-450); RED BLOOD COUNT 4.31 10^6/uL (4.00-5.40); WHITE BLOOD COUNT 6.8 10^3/uL (4.0-10.0)
[2018-11-19 13:36] LABS: ALBUMIN 3.8 GM/DL (3.2-5.2); ALT/SGPT 15 U/L (12-78); BILIRUBIN,TOTAL 0.4 MG/DL (0.2-1.0); BLOOD UREA NITROGEN 18 MG/DL (7-18); CALCIUM LEVEL 9.1 MG/DL (8.5-10.1); CARBON DIOXIDE LEVEL 28 MEQ/L (21-32); CHLORIDE LEVEL 104 MEQ/L (98-107); CREATININE FOR GFR 0.95 MG/DL (0.55-1.30); ERYTHROCYTE SEDIMENTATION RATE 4 mm/hr (0-30); GLOMERULAR FILTRATION RATE > 60.0 (>51); GLUCOSE, FASTING 87 MG/DL (70-100); POTASSIUM SERUM 4.4 MEQ/L (3.5-5.1); SODIUM LEVEL 137 MEQ/L (136-145); TOTAL PROTEIN 7.5 GM/DL (6.4-8.2)
--- NOTE | 2018-11-19 20:38 | ECGEPIP ---
Stationary ECG Study 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 Electronically Signed On 11-19-2018 20:38:46 EST by Vel Yoon
--- NOTE | 2018-11-20 02:43 | REP ---
Clinical: Preop for arthroplasty . Comparison: 08/15/2017 . Technique: PA and lateral. Findings: The mediastinum and cardiac silhouette are normal. The lung lombardi are clear and without acute consolidation, effusion, or pneumothorax. The skeletal structures are intact and normal. Impression: 1. No acute cardiopulmonary process. Electronically Signed by Antelmo Hidalgo MD 11/20/2018 02:34 A
== END ==
LOC: M LAB 11:06
PROVIDERS: ATTEND Orthopaedic Surgery
DX: Z01.818 Encounter for other preprocedural examination (principal)

== ENCOUNTER 2018-12-17 09:25 | Inpatient (IN) | payer OTHER ==
[~2018-12-17] VITALS: Ht 162.6 cm; Wt 77.9 kg
--- NOTE | 2018-12-17 09:24 | HPE ---
DATE OF ADMISSION: 12/17/2018 ATTENDING PHYSICIAN: Dr. Octaviano Willingham CHIEF COMPLAINT: Left knee pain and stiffness. HISTORY: This is a pleasant 53-year-old female patient with progressively worsening left knee pain and stiffness. She has failed to improve with conservative management and has consented for elective left total knee arthroplasty by Dr. Willingham. ALLERGIES: PENICILLIN. CURRENT MEDICATIONS: - Claritin 10 mg - Ellipta 100/25 mcg - ProAir 108 PAST MEDICAL HISTORY: There is no known medical history. PAST SURGICAL HISTORY: Right knee total arthroplasty and carpal tunnel release. FAMILY HISTORY: Noncontributory. SOCIAL HISTORY: The patient is a current every day smoker. REVIEW OF SYSTEMS: Denies fever, chills, chest pain, shortness of breath, recent upper respiratory or urinary tract infections. PHYSICAL EXAMINATION: On exam, she is a well-developed, well-nourished adult female in no apparent distress. She ambulates in the clinic today with a slightly antalgic gait and favoring the left knee. Lungs are clear to auscultation bilaterally with no wheezes, rales, rhonchi. S1, S2 were auscultated with no murmurs, rubs or gallops. The left lower extremity has intact neurovascular status, 2+ posterior tibialis pulses. The left knee shows no obvious deformity. No instability and overlying skin is intact. Abdomen is soft and nontender. Neck is supple with no lymphadenopathy or jugular venous distention (JVD). Electrocardiogram (EKG) noted sinus bradycardia. Chest x-ray with no acute cardiopulmonary processes. Red blood count 14.5, white blood count 6.80, ESR 4, hemoglobin 14.5, hematocrit 41.5. BUN 18, creatinine 0.95. PREOPERATIVE MEDICAL CLEARANCE: Done by primary care provider and reviewed today on the chart. ASSESSMENT: Symptomatic osteoarthritis of the left knee. PLAN: Consented for left total knee arthroplasty by Dr. Octaviano Willingham. PT/INR to be drawn the day of surgery.
[2018-12-17] MEDS ORDERED: LIDOCAINE 1% MDV 20ML VIAL ONE (09:26)
[2018-12-17] MEDS ORDERED: EPINEPHrine INJ 1 MG/ML 1ML AMP ONE (09:26)
[2018-12-17] MEDS ORDERED: ROPIvacaine 0.5% 30 ML INJECTION (J2795 PER 1MG) ONE (09:26)
[2018-12-17] MEDS ORDERED: ACETAMINOPHEN 500 MG TAB As Ordered ONE (09:54)
[2018-12-17] MEDS ORDERED: ceFAZolin 2 GM/D5W 50 ML IV BAG (J0690 PER 500MG) As Ordered ONE (09:54)
[2018-12-17] MEDS ORDERED: ACETAMINOPHEN 500 MG TAB PO ONE (10:00)
[2018-12-17 10:03] LABS: INR 0.83; PROTHROMBIN TIME 11.5 SECONDS (12.1-14.4)
[2018-12-17] MEDS ORDERED: MIDAZOLAM INJ 2 MG/2 ML VIAL (J2250) As Ordered ONE ×2 (11:07→11:58)
[2018-12-17] MEDS ORDERED: fentaNYL 100 MCG/2 ML INJECTION (J3010) As Ordered ONE ×2 (11:07→11:59)
[2018-12-17] MEDS: MIDAZOLAM INJ 2 MG/2 ML VIAL (J2250) IV PRN ×2 (11:10→11:16)
[2018-12-17] MEDS ORDERED: fentaNYL 100 MCG/2 ML INJECTION (J3010) IV PRN ×2 (11:45→14:45)
[2018-12-17] MEDS ORDERED: LIDOCAINE 2% INJ 100 MG/5 ML SDV (FOR ANES.) As Ordered ONE (11:59)
[2018-12-17] MEDS ORDERED: SUGAMMADEX SODIUM 500 MG/5 ML VIAL (BRIDION) As Ordered ONE ×2 (12:07→14:19)
[2018-12-17] MEDS ORDERED: EPINEPHrine INJ 1 MG/ML 1ML AMP As Ordered ONE (12:41)
[2018-12-17] MEDS ORDERED: TRANEXAMIC ACID 100 MG/ML 10ML VIAL As Ordered ONE (12:41)
[2018-12-17] MEDS ORDERED: BUPIVACAINE HCL 0.25% 10 ML VIAL As Ordered ONE (12:41)
[2018-12-17] MEDS ORDERED: CLINDAMYCIN INJ 900MG/6ML VIAL As Ordered ONE (12:41)
[2018-12-17] MEDS ORDERED: BUPIVACAINE LIPOSOME/PF 1.3% 20ML VIAL (13.3MG/ML)(EXPAREL)(C9290 PER1MG) As Ordered ONE (12:41)
[2018-12-17] MEDS ORDERED: ROCURONIUM BROMIDE 50 MG/5 ML VIAL As Ordered ONE (13:00)
[2018-12-17] MEDS ORDERED: ONDANSETRON 4MG/2ML VIAL (J2405) As Ordered ONE (13:32)
[2018-12-17] MEDS ORDERED: MORPHINE 1MG/ML IN 0.9% NACL 100ML IV BAG As Ordered ONE (14:23)
[2018-12-17] MEDS ORDERED: METOCLOPRAMIDE INJ 10MG/2ML VIAL (J2765) IV PRN (14:45)
[2018-12-17] MEDS ORDERED: LR 1,000 ML IV SCH (14:45)
[2018-12-17] MEDS ORDERED: PERCOCET 5MG/325MG TAB PO PRN (14:45)
[2018-12-17] MEDS ORDERED: ONDANSETRON 4MG/2ML VIAL (J2405) IV PRN ×2 (14:45→15:00)
[2018-12-17] MEDS ORDERED: FLEET ENEMA PR PRN (15:00)
[2018-12-17] MEDS ORDERED: MORPHINE 1MG/ML IN 0.9% NACL 100ML IV BAG IV PRN (15:00)
[2018-12-17] MEDS ORDERED: diphenhydrAMINE INJ 50MG/ML VIAL (J1200) IV PRN (15:00)
[2018-12-17] MEDS ORDERED: NALOXONE INJ 0.4 MG/1 ML VIAL (J2310) IV PRN (15:00)
[2018-12-17] MEDS ORDERED: NALBUPHINE HCL 10 MG/ML AMP (J2300) IV PRN (15:00)
[2018-12-17] MEDS ORDERED: ACETAMINOPHEN TAB 650MG DOSE (2X325MG) PO PRN (15:00)
[2018-12-17] MEDS: LR 1,000 ML IV SCH (15:00)
[2018-12-17] MEDS ORDERED: EPIDURAL/PCA KEYS XX PRN (15:00)
--- NOTE | 2018-12-17 15:15 | REP ---
AP LATERAL LEFT KNEE, TWO VIEWS: HISTORY: Knee replacement. T he patient is status-post left total knee replacement. There is no acute fracture or dislocation. Subcutaneous air and surgical vernell are present in the overlying soft tissue. IMPRESSION:The patient is status-post left total knee replacement. There is anatomic alignment. Electronically Signed by Spike Sandra MD 12/17/2018 03:18 P
[2018-12-17 15:45] VITALS: BP 109/59
[2018-12-17 16:15] VITALS: BP 110/56
[2018-12-17 17:15] VITALS: BP 146/64
[2018-12-17 18:15] VITALS: BP 105/52
[2018-12-17 19:15] VITALS: BP 104/55
[2018-12-17 20:15] VITALS: BP 115/54
[2018-12-18 02:15] VITALS: BP 112/55
[2018-12-18] MEDS: LR 1,000 ML IV SCH (04:00)
[2018-12-18 06:00] VITALS: BP 122/61
[2018-12-18] MEDS ORDERED: PERCOCET 5MG/325MG TAB PO PRN (06:15)
[2018-12-18] MEDS ORDERED: ONDANSETRON 4 MG TAB (S0181) PO PRN (06:15)
[2018-12-18 06:20] LABS: HEMATOCRIT 34.8 % (36.0-47.0); HEMOGLOBIN 12.1 g/dl (12.0-15.5); MEAN CORPUSCULAR HEMOGLOBIN 33.5 pg (27.0-33.0); MEAN CORPUSCULAR HGB CONC 34.8 g/dl (32.0-36.5); MEAN CORPUSCULAR VOLUME 96.4 fl (80.0-96.0); PLATELET COUNT, AUTOMATED 201 10^3/uL (150-450); RED BLOOD COUNT 3.61 10^6/uL (4.00-5.40)
[2018-12-18 06:36] LABS: CALCIUM LEVEL 8.3 MG/DL (8.5-10.1); CREATININE FOR GFR 1.04 MG/DL (0.55-1.30); GLOMERULAR FILTRATION RATE 58.8 (>51); POTASSIUM SERUM 4.3 MEQ/L (3.5-5.1)
[2018-12-18] MEDS: PERCOCET 5MG/325MG TAB PO PRN ×3 (08:28→22:02)
[2018-12-18] MEDS: SENOKOT S TAB PO SCH ×2 (08:28→22:00)
--- NOTE | 2018-12-18 08:58 | RO ---
DATE OF PROCEDURE: 12/17/2018 PREPROCEDURE DIAGNOSIS: Left knee osteoarthritis. POSTPROCEDURE DIAGNOSIS: Left knee osteoarthritis. PROCEDURE: Left total knee arthroplasty using a Size 4 cruciate retaining ATTUNE femoral component cemented with a Size 3 tibial tray and a 6 mm rotating platform polyethylene insert and 32 mm polyethylene button. Prosthesis made by [employer]. It was an ATTUNE knee. SURGEON: Dr. Linette Willingham IT SUPPORT CONSULTANT: Mr. Abel Goddard ANESTHESIA: General endotracheal tube anesthetic with left femoral nerve block. COMPLICATIONS: None. ESTIMATED BLOOD LOSS: Less than 20 mL. SPECIMEN: Joint surface. DESCRIPTION OF PROCEDURE: Antibiotics were given intravenously preoperatively and a successful left femoral nerve block and then a general endotracheal anesthetic was established. A tourniquet placed on the left upper thigh and not inflated. The left lower extremity was prepped and draped in the usual sterile fashion, elevated and after appropriate time out the tourniquet was inflated. A longitudinal incision was made for a medial parapatellar approach. Bovie cautery was used to coagulate the crossing vessels. Medial parapatellar arthrotomy performed. Subperiosteal dissection around the proximal medial and proximal lateral tibial plateau was performed. The knee was then flexed with the patella everted. Anterior cruciate ligament (ACL) debrided. Drill placed down the center of the femoral canal, followed by the intramedullary luana and the distal femoral cutting jig set at 5 degrees valgus cut for a left knee at 9 mm resection level. The block was pinned in position. The distal femoral cut performed. AP sizing jig measured for a size 4 femoral component, 3 degrees external rotation was dialed in and drill holes drilled and then 4-in-1 block applied. Then, the anterior, posterior, and chamfer cuts performed. We then exposed the proximal tibia and used the extramedullary alignment jig to estimate being parallel to the mechanical axis of the tibia, referencing off the medial tibial condyle at 4 mm resection level. The block was pinned into position. Secondary check with the extramedullary luana confirmed we appeared to be parallel to the mechanical axis. Then the proximal tibial osteotomy performed. We then placed the template for the notch plasty for the femur into position, performed a notch plasty and then placed the lamina distribution systems serviceperson laterally and performed a completion medial meniscectomy with debridement of the posterior medial osteophytes. We then placed the lamina distribution systems serviceperson medially and performed a completion lateral meniscectomy with debridement of posterior lateral osteophytes. The sizing spacer blocks were then applied, both in flexion and extension. The 6 mm fit the best with good stability to varus and valgus stress testing, both in flexion and in extension. We then exposed the proximal tibia and sized for a 3 tibial tray, which was pinned into position, followed by the reamer and broach, followed by the trial polyethylene, and then trial femoral component. We brought the knee into extension and everted the patella, performed a patellar osteotomy and sized for a 32 button. Lug holes drilled. Trial prosthesis applied and the patellofemoral tracking was anatomic. We drilled the lug holes for the femur at this point. There was good stability to varus and valgus stress testing. Thus, we removed all the trial components. We placed Exparel in the subperiosteal tissues around the distal femur and the proximal tibia. Then Mr. Abel Goddard mixed the cement on the back table as I prepared the bony surfaces for cementing with a copious amount of pulsatile lavage irrigant solution. Once all the bony surfaces were thoroughly dried, we cemented the tibial tray, removing excess cement, placed the polyethylene, then cemented the femoral component, removed excess cement, brought the knee into extension, cemented the patellar button, removed excess cement and held it with a clamp, with the knee in extension until the cement had hardened. As we were awaiting this, we continued to copiously irrigate out the knee joint and then instilled tranexamic acid and then closed the apex of the arthrotomy with #1 PDS sutures, then the medial parapatellar area with #1 PDS suture, and then a running double-armed #1 Stratafix suture used to close the capsule, irrigating between layers with the tourniquet down at this point. We closed the deep subdermal tissues with interrupted #2-0 PDS suture. The skin was closed with vernell and covered by an Optifoam and dry sterile bulky dressing. Then the patient was transferred to the recovery room in stable condition after being awakened from general endotracheal tube anesthesia. There were no intraoperative complications. Mr. Abel Goddard was critical to the success of this operation by helping to manipulate the knee, helping to apply appropriate soft tissue retraction, helping to mix the cement, helping to close the wound, and helping prepare the patient, amongst many other tasks.
[2018-12-18] MEDS ORDERED: MIRALAX *UNIT DOSE* 17GM PACKET PO SCH (09:00)
[2018-12-18] MEDS ORDERED: NICOTINE 21MG/24HR 1 EA TRANSDERMAL TD SCH (09:00)
[2018-12-18] MEDS ORDERED: MOM 30ML SUSPENSION UDC PO SCH (09:00)
[2018-12-18 10:00] VITALS: BP 125/60
[2018-12-18 14:00] VITALS: BP 123/58
[2018-12-18] MEDS ORDERED: RIVAROXABAN 10 MG TAB (XARELTO) PO SCH (18:00)
[2018-12-18] MEDS ORDERED: CALCIUM CARBONATE 500 MG CHEW U/D PO ONE (18:00)
[2018-12-18 22:00] VITALS: BP 127/62
[2018-12-19] MEDS: PERCOCET 5MG/325MG TAB PO PRN ×2 (02:58→06:58)
[2018-12-19 06:00] VITALS: BP 127/62
[2018-12-19 06:35] LABS: HEMATOCRIT 36.2 % (36.0-47.0); HEMOGLOBIN 12.5 g/dl (12.0-15.5); MEAN CORPUSCULAR HEMOGLOBIN 33.5 pg (27.0-33.0); MEAN CORPUSCULAR HGB CONC 34.5 g/dl (32.0-36.5); MEAN CORPUSCULAR VOLUME 97.1 fl (80.0-96.0); PLATELET COUNT, AUTOMATED 195 10^3/uL (150-450); RED BLOOD COUNT 3.73 10^6/uL (4.00-5.40)
[2018-12-19] MEDS ORDERED: XARE10TA PO (06:42)
[2018-12-19] MEDS ORDERED: PERC5TAB12 PO (06:42)
[2018-12-19 06:59] LABS: CALCIUM LEVEL 8.6 MG/DL (8.5-10.1); CREATININE FOR GFR 1.06 MG/DL (0.55-1.30); GLOMERULAR FILTRATION RATE 57.5 (>51); POTASSIUM SERUM 3.9 MEQ/L (3.5-5.1)
== END 2018-12-19 10:45 | disposition home health service (06) | DRG 302 ==
LOC: M SDC 09:25 → M MS5PR 11:56 → EDSTATUS 14:30 → M MS5PR 15:35
PROVIDERS: ADMIT Orthopaedic Surgery; ATTEND Orthopaedic Surgery
PROC: 0SRD0J9 Replacement of Left Knee Joint with Synthetic Substitute, Cemented, Open Approach (ICD-10-PCS; principal; 2018-12-17 12:30)
DX: M17.12 Unilateral primary osteoarthritis, left knee (principal); J44.9 Chronic obstructive pulmonary disease, unspecified; Z88.0 Allergy status to penicillin; Z79.899 Other long term (current) drug therapy; Z96.651 Presence of right artificial knee joint

== ENCOUNTER → 2019-05-22 | Outpatient (CLI) | payer OTHER ==
[~2019-05-22] MED LIST changes: +XARE10TA PO
--- NOTE | 2019-05-22 14:36 | PFTRPT ---
Height: 63.00 Inches Weight: 171.00 Lbs BSA: 1.81 Diagnosis: J44.9 DATE OF PROCEDURE: 05/22/2019 ORDERED BY: Chantel Juan Spirometry: Pre and post bronchodilator study of excellent technical quality. Difficulty with required maneuvers identified. Forced vital capacity reduced. FEV1 out of proportion. Obstructive index is, therefore, reduced. Flow Volume Loop: Expiratory limb of the flow volume loop does suggest flow rate limitation. Effort hampers data acquisition. No significant bronchodilator response is identified. Lung Volumes: Total lung capacity mildly elevated. Residual volume suggests air trapping. Diffusing Capacity: Diffusing capacity further reduced but does correct for alveolar volume. Hemoglobin: No hemoglobin available for correction. Airway Mechanics: Airways resistance elevated with a concomitant decrease in airway conductance. IMPRESSION: Suspect some degree of obstructive ventilatory impairment with underlying air trapping. Decrease in the absolute diffusing capacity. Please correlate clinically. MTDD
== END ==
LOC: M CARPUL 13:46
PROVIDERS: ATTEND Nurse Practitioner Family
DX: J44.9 Chronic obstructive pulmonary disease, unspecified (principal)

== ENCOUNTER 2020-05-13 11:11 | Emergency (ER) | payer OTHER ==
[~2020-05-13] VITALS: Ht 157.5 cm; Wt 81.7 kg
[2020-05-13 11:11] VITALS: BP 121/61
[2020-05-13] MEDS ORDERED: STIO1AER INH (11:19)
[2020-05-13] MEDS ORDERED: NAPR-885 PO (11:19)
[2020-05-13] MEDS ORDERED: ACETAMINOPHEN 500 MG TAB PO ONE (11:45)
[2020-05-13 12:27] LABS: BASO % 0.2 % (0.0-1.0); HEMATOCRIT 42.3 % (36.0-47.0); HEMOGLOBIN 14.6 g/dl (12.0-15.5); LYMPH # 0.9 10^3/uL (1.5-5.0); LYMPH % 5.8 % (24.0-44.0); MEAN CORPUSCULAR HEMOGLOBIN 33.6 pg (27.0-33.0); MEAN CORPUSCULAR HGB CONC 34.5 g/dl (32.0-36.5); MEAN CORPUSCULAR VOLUME 97.2 fl (80.0-96.0); MONO # 0.7 10^3/uL (0.0-0.8); MONO % 4.5 % (0.0-5.0); NEUTROPHILS # 13.2 10^3/uL (1.5-8.5); PLATELET COUNT, AUTOMATED 207 10^3/uL (150-450); RED BLOOD COUNT 4.35 10^6/uL (4.00-5.40); WHITE BLOOD COUNT 14.8 10^3/uL (4.0-10.0)
--- NOTE | 2020-05-13 12:31 | REP ---
Portable chest x-ray: Sitting AP view. History: Shortness of breath and fever. Comparison study: November 19, 2018. Findings: The lungs are symmetrically aerated and clear. Heart is not enlarged. Pulmonary vasculature is not increased. No significant bony abnormality is seen. Impression: No acute disease. Electronically Signed by Jose Daniel Mcrae MD 05/13/2020 12:22 P
[2020-05-13 12:52] LABS: CK-MB VALUE MASS < 1.0 NG/ML (<3.6); CPK CREATINE PHOSPHOKINASE 69 U/L (26-192); MB/CK RELATIVE INDEX 1.45 (< OR =4); TROPONIN I < 0.02 NG/ML (< 0.10)
[2020-05-13] MEDS ORDERED: AZIT-12 PO (13:25)
--- NOTE | 2020-05-14 06:21 | ECGEPIP ---
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
== END 2020-05-13 13:38 | disposition home or self-care (01) ==
LOC: M ED 11:11
DX: J01.90 Acute sinusitis, unspecified (principal); J45.909 Unspecified asthma, uncomplicated; J44.9 Chronic obstructive pulmonary disease, unspecified; Z72.0 Tobacco use; Z79.899 Other long term (current) drug therapy; Z88.0 Allergy status to penicillin

== ENCOUNTER → 2020-05-21 | Outpatient (REF) | payer OTHER, MEDICAID ==
[~2020-05-21] MED LIST changes: +AZIT-12 PO; +NAPR-885 PO; +STIO1AER INH
[2020-05-21 16:40] LABS: BASO % 0.3 % (0.0-1.0); EOS # 0.1 10^3/uL (0.0-0.5); EOS % 1.8 % (0.0-3.0); HEMATOCRIT 37.5 % (36.0-47.0); LYMPH # 2.2 10^3/uL (1.5-5.0); LYMPH % 29.6 % (24.0-44.0); MEAN CORPUSCULAR HEMOGLOBIN 33.4 pg (27.0-33.0); MEAN CORPUSCULAR HGB CONC 34.7 g/dl (32.0-36.5); MEAN CORPUSCULAR VOLUME 96.4 fl (80.0-96.0); MONO # 0.4 10^3/uL (0.0-0.8); MONO % 5.3 % (0.0-5.0); NEUTROPHILS # 4.6 10^3/uL (1.5-8.5); NEUTROPHILS % 62.1 % (36.0-66.0); PLATELET COUNT, AUTOMATED 398 10^3/uL (150-450); RED BLOOD COUNT 3.89 10^6/uL (4.00-5.40); WHITE BLOOD COUNT 7.4 10^3/uL (4.0-10.0)
[2020-05-21 16:44] LABS: APPEARANCE, URINE CLEAR (CLEAR); BACTERIA, URINE AUTO NEGATIVE (NEGATIVE); BILIRUBIN, URINE AUTO NEGATIVE (NEGATIVE); BLOOD, URINE BLOOD 2+ (NEGATIVE); COLOR, URINE YELLOW (YELLOW); GLUCOSE, URINE (UA) AUTO NEGATIVE (NEGATIVE); KETONE, URINE AUTO NEGATIVE (NEGATIVE); LEUKOCYTE ESTERASE, URINE AUTO TRACE (NEGATIVE); MUCUS, URINE SMALL (NEGATIVE); NITRITE, URINE AUTO NEGATIVE (NEGATIVE); PROTEIN, URINE AUTO NEGATIVE (NEGATIVE); RBC, URINE AUTO 0 /HPF (0-3); SPECIFIC GRAVITY URINE AUTO 1.008 (1.002-1.035); SQUAMOUS EPITHELIAL CELL UR AU 1 /HPF (0-6); UROBILINOGEN, URINE AUTO 0.2 mg/dL (0.0-2.0); WBC, URINE AUTO 6 /HPF (0-3)
[2020-05-21 17:12] LABS: ALBUMIN 2.8 GM/DL (3.2-5.2); BILIRUBIN,TOTAL 0.6 MG/DL (0.2-1.0); CREATININE FOR GFR 1.07 MG/DL (0.55-1.30); GLOMERULAR FILTRATION RATE 56.5 (>51); POTASSIUM SERUM 5.2 MEQ/L (3.5-5.1); TOTAL PROTEIN 7.4 GM/DL (6.4-8.2)
== END ==
LOC: M LAB REF 15:19
PROVIDERS: ATTEND Nurse Practitioner Family
DX: Z01.818 Encounter for other preprocedural examination (principal); Z13.9 Encounter for screening, unspecified; M25.551 Pain in right hip

== ENCOUNTER → 2021-05-12 | Outpatient (REF) | payer OTHER, MEDICAID ==
[2021-05-12 17:47] LABS: APPEARANCE, URINE CLEAR (CLEAR); BACTERIA, URINE AUTO NEGATIVE (NEGATIVE); BILIRUBIN, URINE AUTO NEGATIVE (NEGATIVE); BLOOD, URINE BLOOD 2+ (NEGATIVE); COLOR, URINE STRAW (YELLOW); GLUCOSE, URINE (UA) AUTO NEGATIVE (NEGATIVE); KETONE, URINE AUTO NEGATIVE (NEGATIVE); LEUKOCYTE ESTERASE, URINE AUTO NEGATIVE (NEGATIVE); NITRITE, URINE AUTO NEGATIVE (NEGATIVE); PROTEIN, URINE AUTO NEGATIVE (NEGATIVE); RBC, URINE AUTO 1 /HPF (0-3); SPECIFIC GRAVITY URINE AUTO 1.003 (1.002-1.035); SQUAMOUS EPITHELIAL CELL UR AU 1 /HPF (0-6); UROBILINOGEN, URINE AUTO 0.2 mg/dL (0.0-2.0); WBC, URINE AUTO 0 /HPF (0-3)
[2021-05-12 18:47] LABS: BASO % 0.5 % (0.0-1.0); EOS # 0.2 10^3/uL (0.0-0.5); EOS % 2.3 % (0.0-3.0); HEMATOCRIT 45.2 % (36.0-47.0); HEMOGLOBIN 15.3 g/dl (12.0-15.5); LYMPH # 2.4 10^3/uL (1.5-5.0); LYMPH % 36.2 % (24.0-44.0); MEAN CORPUSCULAR HEMOGLOBIN 32.8 pg (27.0-33.0); MEAN CORPUSCULAR HGB CONC 33.8 g/dl (32.0-36.5); MONO # 0.5 10^3/uL (0.0-0.8); MONO % 7.2 % (2.0-8.0); NEUTROPHILS # 3.5 10^3/uL (1.5-8.5); NEUTROPHILS % 53.5 % (36.0-66.0); PLATELET COUNT, AUTOMATED 235 10^3/uL (150-450); RED BLOOD COUNT 4.66 10^6/uL (4.00-5.40); WHITE BLOOD COUNT 6.5 10^3/uL (4.0-10.0)
[2021-05-12 19:20] LABS: ALBUMIN 3.9 GM/DL (3.2-5.2); BILIRUBIN,TOTAL 0.5 MG/DL (0.2-1.0); CALCIUM LEVEL 9.3 MG/DL (8.5-10.1); CHOLESTEROL RISK RATIO 4.725 (<5); CREATININE FOR GFR 1.24 MG/DL (0.55-1.30); FREE T4 1.17 NG/DL (0.76-1.46); GLOMERULAR FILTRATION RATE 47.5 (>51); POTASSIUM SERUM 5.4 MEQ/L (3.5-5.1); THYROID STIMULATING HORMONE 1.39 uIU/ML (0.358-3.740); TOTAL PROTEIN 7.6 GM/DL (6.4-8.2)
[2021-05-12 19:22] LABS: TOTAL 25(OH) VITAMIN D 49.8 NG/ML (30.0-100.0)
[2021-05-12 19:39] LABS: HEMOGLOBIN A1c 5.6 %
== END ==
LOC: M LAB REF 16:35
PROVIDERS: ATTEND Nurse Practitioner Family
DX: J44.9 Chronic obstructive pulmonary disease, unspecified (principal); F17.200 Nicotine dependence, unspecified, uncomplicated; Z13.228 Encounter for screening for other metabolic disorders; E66.9 Obesity, unspecified

== ENCOUNTER 2021-07-25 21:21 | Emergency (ER) | payer MEDICARE, OTHER ==
[~2021-07-25] VITALS: Ht 160 cm; Wt 83.0 kg
[2021-07-25] MEDS ORDERED: MELO15TA28 PO (21:27)
[2021-07-25] MEDS ORDERED: ATOR1TAB21 PO (21:27)
[2021-07-25] MEDS ORDERED: KETOROLAC 30 MG/ML 1ML VIAL IV ONE (22:30)
[2021-07-25 22:50] LABS: HEMATOCRIT 40.3 % (36.0-47.0); HEMOGLOBIN 14.2 g/dl (12.0-15.5); MEAN CORPUSCULAR HEMOGLOBIN 34.5 pg (27.0-33.0); MEAN CORPUSCULAR HGB CONC 35.2 g/dl (32.0-36.5); MEAN CORPUSCULAR VOLUME 98.1 fl (80.0-96.0); PLATELET COUNT, AUTOMATED 203 10^3/uL (150-450); RED BLOOD COUNT 4.11 10^6/uL (4.00-5.40); WHITE BLOOD COUNT 9.3 10^3/uL (4.0-10.0)
[2021-07-25 23:20] LABS: ATYPICAL LYMPH 2 % (0-5); BLOOD UREA NITROGEN 28 MG/DL (7-18); CALCIUM LEVEL 9.3 MG/DL (8.5-10.1); CARBON DIOXIDE LEVEL 28 MEQ/L (21-32); CHLORIDE LEVEL 105 MEQ/L (98-107); CK-MB VALUE MASS 1.5 NG/ML (<3.6); CPK CREATINE PHOSPHOKINASE 142 U/L (26-192); CREATININE FOR GFR 1.29 MG/DL (0.55-1.30); EOSINOPHILS 2 % (0-3); GLOMERULAR FILTRATION RATE 45.3 (>51); GLUCOSE, FASTING 105 MG/DL (70-100); LYMPHOCYTES 28 % (16-44); MB/CK RELATIVE INDEX 1.06 (< OR =4); MONOCYTES 1 % (0-5); NEUTROPHILS 67 % (28-66); PLATELET CLUMPS SMALL AMT; PLATELET ESTIMATE NORMAL (NORMAL); POTASSIUM SERUM 4.2 MEQ/L (3.5-5.1); SODIUM LEVEL 139 MEQ/L (136-145); TROPONIN I < 0.02 NG/ML (< 0.10)
--- NOTE | 2021-07-25 23:53 | REPVR ---
PROCEDURE INFORMATION: Exam: XR Chest Exam date and time: 07/25/2021 10:26 PM Age: 56 years old Clinical indication: Shortness of breath TECHNIQUE: Imaging protocol: XR of the chest. Views: 2 views. COMPARISON: ID PORTABLE CHEST X-RAY 05/13/2020 12:04 PM FINDINGS: Lungs: Unremarkable. No consolidation. Pleural spaces: Unremarkable. No pleural effusion. No pneumothorax. Heart/Mediastinum: Unremarkable. No cardiomegaly. Bones/joints: Unremarkable. IMPRESSION: No acute infiltrates. Electronically signed by: La Nena Keita On 07/25/2021 23:52:43 PM
[2021-07-26] MEDS ORDERED: IBUP80TA PO (01:20)
[2021-07-26 01:28] VITALS: BP 121/57
--- NOTE | 2021-07-26 06:03 | ECGEPIP ---
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
== END 2021-07-26 01:33 | disposition home or self-care (01) ==
LOC: M ED 21:21
DX: R07.9 Chest pain, unspecified (principal); E78.5 Hyperlipidemia, unspecified; J44.9 Chronic obstructive pulmonary disease, unspecified; F17.200 Nicotine dependence, unspecified, uncomplicated; Z88.0 Allergy status to penicillin
CPT/HCPCS: 71046; 80048; 82550; 82553; 84484; 85025; 85379; 93005; 93041; 94760; 96374; 99285; J1885

== ENCOUNTER → 2021-07-27 | Outpatient (CLI) | payer OTHER ==
[~2021-07-27] MED LIST changes: +ATOR1TAB21 PO; +IBUP80TA PO; +MELO15TA28 PO
== END ==
LOC: M PLALAB 13:36
PROVIDERS: ATTEND Optometrist
DX: H53.2 Diplopia (principal)

== ENCOUNTER 2022-04-07 10:09 | Emergency (ER) | payer MEDICARE, OTHER ==
[~2022-04-07] VITALS: Ht 160 cm; Wt 83.2 kg
[2022-04-07 11:38] LABS: ALBUMIN 3.5 GM/DL (3.2-5.2); BILIRUBIN,DIRECT 0.1 MG/DL (0.0-0.2); BILIRUBIN,TOTAL 0.5 MG/DL (0.2-1.0); C REACTIVE PROTEIN QUANTITATIV 5.17 MG/DL (0.00-0.30); CALCIUM LEVEL 9.8 MG/DL (8.5-10.1); CREATININE FOR GFR 1.09 MG/DL (0.55-1.30); GLOMERULAR FILTRATION RATE 55.1 (>51); POTASSIUM SERUM 4.3 MEQ/L (3.5-5.1); TOTAL PROTEIN 7.6 GM/DL (6.4-8.2)
[2022-04-07] MEDS ORDERED: ISOVUE-370 76% 100ML VIAL As Ordered ONE (13:00)
[2022-04-07] MEDS ORDERED: NS 1,000 ML IV ONE (13:00)
[2022-04-07] MEDS ORDERED: CLINDAMYCIN 900 MG in IV 1 EA IV ONE (13:00)
[2022-04-07 13:17] LABS: BASO % 0.3 % (0.0-1.0); EOS # 0.1 10^3/uL (0.0-0.5); EOS % 0.5 % (0.0-3.0); HEMATOCRIT 45.4 % (36.0-47.0); HEMOGLOBIN 15.7 g/dl (12.0-15.5); LYMPH # 1.7 10^3/uL (1.5-5.0); LYMPH % 18.1 % (24.0-44.0); MEAN CORPUSCULAR HEMOGLOBIN 33.9 pg (27.0-33.0); MEAN CORPUSCULAR HGB CONC 34.6 g/dl (32.0-36.5); MEAN CORPUSCULAR VOLUME 98.1 fl (80.0-96.0); MONO # 0.6 10^3/uL (0.0-0.8); MONO % 5.8 % (2.0-8.0); NEUTROPHILS # 7.1 10^3/uL (1.5-8.5); RED BLOOD COUNT 4.63 10^6/uL (4.00-5.40); WHITE BLOOD COUNT 9.5 10^3/uL (4.0-10.0)
[2022-04-07] MEDS ORDERED: BENZOCAINE 20% GEL 9GM TUBE (ANBESOL MAX STRENGTH) TOP ONE (14:35)
[2022-04-07] MEDS ORDERED: LIDOCAINE 2% W/ EPINEPHRINE 1.7 ML DENTAL INJ SM ONE (14:35)
[2022-04-07] MEDS ORDERED: CLEO300C2 PO (15:57)
[2022-04-07] MEDS ORDERED: dexameTHASONE 20MG/5ML VIAL (J1100 PER 1MG) IV ONE (16:10)
[2022-04-07 16:25] VITALS: BP 118/57
== END 2022-04-07 16:35 | disposition home or self-care (01) ==
LOC: M ED 10:09
DX: K04.7 Periapical abscess without sinus (principal); F17.200 Nicotine dependence, unspecified, uncomplicated; Z79.899 Other long term (current) drug therapy; Z88.0 Allergy status to penicillin
CPT/HCPCS: 10160; 70491; 80048; 80076; 83605; 85025; 85652; 86140; 87040; 96361; 96365; 96375; 99283; J1100; Q9967

== ENCOUNTER 2022-04-08 14:22 | Day surgery (SDC) | payer MEDICARE, OTHER ==
[~2022-04-08] VITALS: Ht 160 cm; Wt 81.1 kg
[~2022-04-08 14:22] MED LIST changes: +CLEO300C2 PO
[2022-04-08] MEDS ORDERED: LR 1,000 ML IV SCH ×2 (14:30→18:35)
[2022-04-08] MEDS ORDERED: MIDAZOLAM INJ 2MG/2ML VIAL (J2250 PER 1MG) As Ordered ONE (17:31)
[2022-04-08] MEDS ORDERED: LIDOCAINE 2% 100MG/5ML SDV (FOR ANES.) As Ordered ONE (17:31)
[2022-04-08] MEDS ORDERED: ROCURONIUM BROMIDE 50 MG/5 ML VIAL As Ordered ONE (17:31)
[2022-04-08] MEDS ORDERED: propofoL 200 MG/20 ML VIAL As Ordered ONE (17:31)
[2022-04-08] MEDS ORDERED: fentaNYL 100 MCG/2 ML INJECTION As Ordered ONE (17:31)
[2022-04-08] MEDS ORDERED: ONDANSETRON 4MG/2ML VIAL As Ordered ONE (17:33)
[2022-04-08] MEDS ORDERED: dexameTHASONE 4 MG/ML 1ML VIAL (J1100 PER 1MG) As Ordered ONE (17:33)
[2022-04-08] MEDS ORDERED: MEPIVACAINE HCL 3 % 1.7 ML DENTAL CARTRIDGE (CARBOCAINE) (J0670) As Ordered ONE (17:38)
[2022-04-08] MEDS ORDERED: OXYMETAZOLINE 0.05% NASAL SPRAY (AFRIN) As Ordered ONE (17:39)
[2022-04-08] MEDS: LIDOCAINE 2% MDV 20ML VIAL As Ordered ONE ×2 (17:39→18:20)
[2022-04-08] MEDS ORDERED: LIDOCAINE 2% W/ EPINEPHRINE 1.7 ML DENTAL INJ As Ordered ONE (17:40)
[2022-04-08] MEDS ORDERED: CLINDAMYCIN 900MG/50ML PREMIX BAG As Ordered ONE ×2 (17:57→18:15)
[2022-04-08] MEDS ORDERED: SUCCINYLCHOLINE 100 MG/5 ML SYRINGE (J0330) As Ordered ONE (18:16)
[2022-04-08] MEDS ORDERED: ACETAMINOPHEN 1000MG 100ML IV BTL (OFIRMEV) (J0131 PER 10MG) As Ordered ONE (18:22)
[2022-04-08] MEDS ORDERED: ALBUTEROL 6.7GM INHALER **FOR ANES. CART/OMNICELL ONLY As Ordered ONE (18:25)
[2022-04-08] MEDS ORDERED: METOCLOPRAMIDE INJ 10MG/2ML VIAL (J2765 PER 1) IV PRN (18:35)
[2022-04-08] MEDS ORDERED: INSULIN LISPRO (NovoLOG) PER UNIT SC PRN (18:35)
[2022-04-08] MEDS ORDERED: ALBUTEROL SULFATE 2.5 MG/0.5 ML INH NEB SOLN INH ONE (18:35)
[2022-04-08] MEDS ORDERED: fentaNYL 100 MCG/2 ML INJECTION IV PRN (18:35)
[2022-04-08] MEDS ORDERED: ONDANSETRON 4MG/2ML VIAL IV PRN (18:35)
[2022-04-08 19:40] VITALS: BP 117/61
== END 2022-04-08 20:15 | disposition home or self-care (01) ==
LOC: M SDC 14:22
PROVIDERS: ATTEND Dentist
DX: K04.7 Periapical abscess without sinus (principal); K02.9 Dental caries, unspecified; J44.9 Chronic obstructive pulmonary disease, unspecified; J45.909 Unspecified asthma, uncomplicated; E78.5 Hyperlipidemia, unspecified; E66.9 Obesity, unspecified; F17.210 Nicotine dependence, cigarettes, uncomplicated; F12.20 Cannabis dependence, uncomplicated; Z88.0 Allergy status to penicillin
CPT/HCPCS: 41899; 87426; 88300; J0131; J0330; J1100; J2250; J2405; J3010

== ENCOUNTER → 2022-09-21 | Outpatient (REF) | payer MEDICARE, MEDICAID ==
[2022-09-21 18:09] LABS: BASO % 0.7 % (0.0-1.0); EOS # 0.1 10^3/uL (0.0-0.5); EOS % 1.8 % (0.0-3.0); HEMATOCRIT 42.1 % (36.0-47.0); HEMOGLOBIN 13.8 g/dl (12.0-15.5); LYMPH # 1.9 10^3/uL (1.5-5.0); LYMPH % 31.1 % (24.0-44.0); MEAN CORPUSCULAR HEMOGLOBIN 31.6 pg (27.0-33.0); MEAN CORPUSCULAR HGB CONC 32.8 g/dl (32.0-36.5); MEAN CORPUSCULAR VOLUME 96.3 fl (80.0-96.0); MONO # 0.4 10^3/uL (0.0-0.8); MONO % 5.8 % (2.0-8.0); NEUTROPHILS # 3.6 10^3/uL (1.5-8.5); NEUTROPHILS % 60.3 % (36.0-66.0); PLATELET COUNT, AUTOMATED 304 10^3/uL (150-450); RED BLOOD COUNT 4.37 10^6/uL (4.00-5.40)
[2022-09-21 18:57] LABS: ALBUMIN 3.2 GM/DL (3.2-5.2); BILIRUBIN,TOTAL 0.2 MG/DL (0.2-1.0); CALCIUM LEVEL 9.5 MG/DL (8.5-10.1); CHOLESTEROL RISK RATIO 5.06 (<5); CREATININE FOR GFR 1.23 MG/DL (0.55-1.30); GLOMERULAR FILTRATION RATE 47.7 (>51); POTASSIUM SERUM 4.8 MEQ/L (3.5-5.1); TOTAL PROTEIN 7.9 GM/DL (6.4-8.2)
[2022-09-21 19:44] LABS: TOTAL 25(OH) VITAMIN D 36.5 NG/ML (30.0-100.0)
[2022-09-21 20:26] LABS: HEMOGLOBIN A1c 6.2 %
== END ==
LOC: M LAB REF 16:58
PROVIDERS: ATTEND Nurse Practitioner Family
DX: E66.3 Overweight (principal)

== ENCOUNTER → 2022-10-27 | Outpatient (CLI) | payer MEDICARE, MEDICAID | LOC: M WHC 13:53 | PROVIDERS: ATTEND Nurse Practitioner Family | DX: Z12.31 Encounter for screening mammogram for malignant neoplasm of breast (principal) ==

== ENCOUNTER → 2022-12-26 | Outpatient (REF) | payer MEDICARE, MEDICAID ==
[2022-12-26 11:50] LABS: HEMOGLOBIN A1c 5.2 % (4.0-6.0)
[2022-12-26 12:15] LABS: ALBUMIN 3.5 G/DL (3.2-5.2); ALKALINE PHOSPHATASE 94 U/L (46-116); ALT/SGPT 17 U/L (7.0-40); AST/SGOT < 8 U/L (<34); BILIRUBIN,TOTAL 0.3 MG/DL (0.3-1.2); BLOOD UREA NITROGEN 26 MG/DL (9-23); CALCIUM LEVEL 9.8 MG/DL (8.5-10.1); CARBON DIOXIDE LEVEL 26 MMOL/L (20-31); CHLORIDE LEVEL 108 MMOL/L (98-107); CHOLESTEROL LEVEL 260 MG/DL (<200); CHOLESTEROL RISK RATIO 4.04 (<5); CREATININE FOR GFR 1.22 MG/DL (0.55-1.30); GLOMERULAR FILTRATION RATE 48.2 (>51); GLUCOSE, FASTING 92 MG/DL (60-100); HDL CHOLESTEROL 64.3 MG/DL (>40); LDL CHOLESTEROL 171.5 MG/DL (<100); NON-HDL-C 196 MG/DL; POTASSIUM SERUM 4.8 MMOL/L (3.5-5.1); SODIUM LEVEL 138 MMOL/L (136-145); TOTAL PROTEIN 7.4 G/DL (5.7-8.2); TRIGLYCERIDES LEVEL 121 MG/DL (<150)
== END ==
LOC: M LAB REF 11:25
PROVIDERS: ATTEND Nurse Practitioner Family
DX: R73.03 Prediabetes (principal); E78.5 Hyperlipidemia, unspecified

== ENCOUNTER → 2023-04-05 | Outpatient (REF) | payer MEDICARE, MEDICAID | LOC: M SFHCWAGY 13:28 | PROVIDERS: ATTEND Nurse Practitioner Family | DX: Z12.4 Encounter for screening for malignant neoplasm of cervix (principal) | CPT/HCPCS: 87624; G0123 ==

== ENCOUNTER → 2023-04-13 | Outpatient (REF) | payer MEDICARE ==
[2023-04-13 17:35] LABS: HEMOGLOBIN A1c 5.2 % (4.0-6.0)
[2023-04-13 17:55] LABS: ALBUMIN 3.6 G/DL (3.2-5.2); BILIRUBIN,TOTAL 0.4 MG/DL (0.3-1.2); CALCIUM LEVEL 8.6 MG/DL (8.5-10.1); CHOLESTEROL RISK RATIO 3.65 (<5); CREATININE FOR GFR 1.26 MG/DL (0.55-1.30); GLOMERULAR FILTRATION RATE 46.4 (>51); HDL CHOLESTEROL 60.4 MG/DL (>40); LDL CHOLESTEROL 138.8 MG/DL (<100); NON-HDL-C 160.6 MG/DL; POTASSIUM SERUM 4.7 MMOL/L (3.5-5.1); TOTAL PROTEIN 6.6 G/DL (5.7-8.2)
== END ==
LOC: M LAB REF 17:02
PROVIDERS: ATTEND Nurse Practitioner Family
DX: R73.03 Prediabetes (principal); E78.5 Hyperlipidemia, unspecified

== ENCOUNTER → 2023-05-03 | Outpatient (CLI) | payer MEDICARE | LOC: M WHC 10:54 | PROVIDERS: ATTEND Nurse Practitioner Family | DX: Z13.820 Encounter for screening for osteoporosis (principal) ==

== ENCOUNTER → 2023-09-04 | Outpatient (REF) | payer MEDICARE, MEDICAID ==
[2023-09-05 03:59] LABS: CHOLESTEROL RISK RATIO 4.34 (<5); HDL CHOLESTEROL 58.4 MG/DL (>40); LDL CHOLESTEROL 167.2 MG/DL (<100); NON-HDL-C 195.6 MG/DL
== END ==
LOC: M LAB REF 16:34
PROVIDERS: ATTEND Nurse Practitioner Family
DX: E78.5 Hyperlipidemia, unspecified (principal)

== ENCOUNTER → 2023-12-19 | Outpatient (REF) | payer MEDICARE ==
[2023-12-19 13:29] LABS: BASO % 0.8 % (0.0-1.0); EOS # 0.2 10^3/uL (0.0-0.5); EOS % 4.2 % (0.0-3.0); HEMATOCRIT 42.7 % (36.0-47.0); HEMOGLOBIN 14.5 g/dl (12.0-15.5); LYMPH # 1.9 10^3/uL (1.5-5.0); LYMPH % 39.2 % (24.0-44.0); MEAN CORPUSCULAR HEMOGLOBIN 32.9 pg (27.0-33.0); MEAN CORPUSCULAR VOLUME 96.8 fl (80.0-96.0); MONO # 0.4 10^3/uL (0.0-0.8); MONO % 7.1 % (2.0-8.0); NEUTROPHILS # 2.4 10^3/uL (1.5-8.5); NEUTROPHILS % 48.5 % (36.0-66.0); PLATELET COUNT, AUTOMATED 234 10^3/uL (150-450); RED BLOOD COUNT 4.41 10^6/uL (4.00-5.40)
[2023-12-19 14:10] LABS: THYROID STIMULATING HORMONE 1.617 uIU/ML (0.55-4.78)
[2023-12-19 14:11] LABS: ALBUMIN 3.6 G/DL (3.2-5.2); BILIRUBIN,TOTAL 0.4 MG/DL (0.3-1.2); CALCIUM LEVEL 9.3 MG/DL (8.5-10.1); CHOLESTEROL RISK RATIO 2.66 (<5); CREATININE FOR GFR 1.2 MG/DL (0.55-1.30); HDL CHOLESTEROL 58.6 MG/DL (>40); LDL CHOLESTEROL 79.8 MG/DL (<100); NON-HDL-C 97.4 MG/DL; POTASSIUM SERUM 4.9 MMOL/L (3.5-5.1); TOTAL 25(OH) VITAMIN D 38.8 NG/ML (20.0-100.0); TOTAL PROTEIN 6.9 G/DL (5.7-8.2)
[2023-12-19 20:51] LABS: HEMOGLOBIN A1c 5.6 % (4.0-6.0)
== END ==
LOC: M LAB REF 12:19
PROVIDERS: ATTEND Nurse Practitioner Family
DX: E78.5 Hyperlipidemia, unspecified (principal); E66.9 Obesity, unspecified; E55.9 Vitamin D deficiency, unspecified; R73.03 Prediabetes

== ENCOUNTER → 2024-01-11 | Outpatient (CLI) | payer MEDICARE, OTHER | LOC: M WHC 11:16 | PROVIDERS: ATTEND Nurse Practitioner Family | DX: Z12.31 Encounter for screening mammogram for malignant neoplasm of breast (principal) ==

== ENCOUNTER → 2024-06-10 | Outpatient (CLI) | payer MEDICARE, OTHER | LOC: M RAD 10:29 | PROVIDERS: ATTEND Nurse Practitioner Family | DX: Z12.2 Encounter for screening for malignant neoplasm of respiratory organs (principal); F17.210 Nicotine dependence, cigarettes, uncomplicated; R91.8 Other nonspecific abnormal finding of lung field; I25.10 Atherosclerotic heart disease of native coronary artery without angina pectoris; I70.0 Atherosclerosis of aorta ==

== ENCOUNTER → 2024-09-03 | Outpatient (REF) | payer MEDICARE, OTHER ==
[2024-09-03 19:34] LABS: MEAN CORPUSCULAR HEMOGLOBIN 33.8 pg (27.0-33.0); MEAN CORPUSCULAR HGB CONC 34.1 g/dl (32.0-36.5); PLATELET COUNT, AUTOMATED 213 10^3/uL (150-450); RED BLOOD COUNT 4.14 10^6/uL (4.00-5.40); WHITE BLOOD COUNT 6.9 10^3/uL (4.0-10.0)
[2024-09-03 19:46] LABS: HEMOGLOBIN A1c 5.5 % (4.0-6.0)
[2024-09-03 19:52] LABS: ALBUMIN 3.2 G/DL (3.2-5.2); BILIRUBIN,TOTAL 0.4 MG/DL (0.3-1.2); CALCIUM LEVEL 9.6 MG/DL (8.3-10.6); CHOLESTEROL RISK RATIO 3.32 (<5); CREATININE FOR GFR 1.18 MG/DL (0.55-1.30); GLOMERULAR FILTRATION RATE 49.7 (>45); HDL CHOLESTEROL 45.4 MG/DL (>40); LDL CHOLESTEROL 85.2 MG/DL (<100); MAGNESIUM LEVEL 1.9 MG/DL (1.8-2.4); NON-HDL-C 105.6 MG/DL; POTASSIUM SERUM 4.9 MMOL/L (3.5-5.1); TOTAL PROTEIN 6.9 G/DL (5.7-8.2)
[2024-09-03 20:26] LABS: LYMPHOCYTES 28 % (16-44); MONOCYTES 1 % (0-5); NEUTROPHILS 71 % (28-66); PLATELET ESTIMATE NORMAL (NORMAL)
== END ==
LOC: M LAB REF 17:42
PROVIDERS: ATTEND Nurse Practitioner Family
DX: E66.9 Obesity, unspecified (principal); Z79.899 Other long term (current) drug therapy

== ENCOUNTER → 2024-09-26 | Outpatient (CLI) | payer MEDICARE | LOC: M RAD 09:49 | PROVIDERS: ATTEND Internal Medicine Pulmonary Disease | DX: R91.8 Other nonspecific abnormal finding of lung field (principal) ==

== ENCOUNTER → 2024-10-31 | Outpatient (CLI) | payer MEDICARE | LOC: M RAD 10:31 | PROVIDERS: ATTEND Physician Assistant | DX: M54.16 Radiculopathy, lumbar region (principal); M47.896 Other spondylosis, lumbar region ==

== ENCOUNTER → 2024-10-31 | Outpatient (CLI) | payer MEDICARE | LOC: M RAD 10:17 | PROVIDERS: ATTEND Nurse Practitioner Family | DX: N18.31 Chronic kidney disease, stage 3a (principal); M54.16 Radiculopathy, lumbar region; M47.896 Other spondylosis, lumbar region ==

== ENCOUNTER → 2025-02-04 | Outpatient (CLI) | payer MEDICARE | LOC: M WHC 11:36 | PROVIDERS: ATTEND Nurse Practitioner Family | DX: Z12.31 Encounter for screening mammogram for malignant neoplasm of breast (principal); R92.313 Mammographic fatty tissue density, bilateral breasts ==

== ENCOUNTER 2025-05-14 06:04 | Day surgery (SDC) | payer MEDICARE, OTHER ==
[~2025-05-14] VITALS: Ht 160 cm; Wt 85.7 kg
[~2025-05-14 06:04] MED LIST changes: +ALBU8.5H INH; +ATOR1TAB19 PO; +METF-838 PO; +VITA100093 PO; +ZYRTTAB8 PO
[2025-05-14] MEDS ORDERED: LR 1,000 ML IV SCH (07:05)
[2025-05-14] MEDS ORDERED: dexAMETHasone 4 MG/ML 1 ML VIAL As Ordered ONE (07:37)
[2025-05-14] MEDS ORDERED: ONDANSETRON 4MG 2ML VIAL As Ordered ONE (07:37)
[2025-05-14] MEDS ORDERED: ROCURONIUM BROMIDE 50MG/5ML VIAL As Ordered ONE (07:37)
[2025-05-14] MEDS ORDERED: MIDAZOLAM INJ 2 MG/2 ML VIAL As Ordered ONE (07:37)
[2025-05-14] MEDS ORDERED: LIDOCAINE 2% 100 MG/5 ML SDV (FOR ANES.) As Ordered ONE (07:37)
[2025-05-14] MEDS ORDERED: SUGAMMADEX SODIUM 500 MG/5 ML VIAL As Ordered ONE (07:37)
[2025-05-14] MEDS ORDERED: ACETAMINOPHEN 1000MG/100ML IV BAG As Ordered ONE (08:00)
[2025-05-14] MEDS: CETACAINE SPRAY 5 GM As Ordered ONE (08:04)
[2025-05-14] MEDS: EPINEPHrine 1 MG/10 ML SYRINGE 1.5IN As Ordered ONE (08:30)
[2025-05-14] MEDS: THROMBIN 5,000 UNITS VIAL As Ordered ONE (08:30)
[2025-05-14] MEDS ORDERED: KETOROLAC 30 MG/ML 1 ML VIAL As Ordered ONE (08:33)
[2025-05-14] MEDS ORDERED: ONDANSETRON 4MG 2ML VIAL IV PRN (08:40)
[2025-05-14] MEDS ORDERED: HYDROMORPHONE HCL 0.5 MG/0.5 ML SYRINGE IV PRN (08:40)
[2025-05-14 09:49] VITALS: BP 128/58; TEMP 96.6; O2SAT 92
== END 2025-05-14 10:22 | disposition home or self-care (01) ==
LOC: M SDC 06:04
PROVIDERS: ATTEND Internal Medicine Pulmonary Disease
DX: J84.10 Pulmonary fibrosis, unspecified (principal); J98.4 Other disorders of lung; J44.89 Other specified chronic obstructive pulmonary disease; F17.210 Nicotine dependence, cigarettes, uncomplicated; E11.9 Type 2 diabetes mellitus without complications; E78.00 Pure hypercholesterolemia, unspecified; Z79.899 Other long term (current) drug therapy; Z79.84 Long term (current) use of oral hypoglycemic drugs; Z86.718 Personal history of other venous thrombosis and embolism; Z88.0 Allergy status to penicillin
CPT/HCPCS: 31624; 31627; 31628; 71045; 76000; 88108; 88305; 88313; 93005; C1601; J0131; J0168; J1100; J1885; J2250; J2405; J3010

== ENCOUNTER → 2025-05-19 | Outpatient (CLI) | payer MEDICARE, OTHER | LOC: M PLAIMG 09:50 | PROVIDERS: ATTEND Internal Medicine Pulmonary Disease | DX: R91.8 Other nonspecific abnormal finding of lung field (principal) ==

== ENCOUNTER → 2025-07-30 | Outpatient (CLI) | payer MEDICARE, OTHER, MEDICAID ==
[~2025-07-30] MED LIST changes: -IBUP-1022 PO; +IBUP600T42 PO
== END ==
LOC: M WHC 10:45
PROVIDERS: ATTEND Nurse Practitioner Family
DX: Z12.31 Encounter for screening mammogram for malignant neoplasm of breast (principal); R92.313 Mammographic fatty tissue density, bilateral breasts

== ENCOUNTER → 2025-09-09 | Outpatient (CLI) | payer MEDICARE, OTHER | LOC: M PLAIMG 13:01 | PROVIDERS: ATTEND Internal Medicine Pulmonary Disease | DX: R91.8 Other nonspecific abnormal finding of lung field (principal) ==